=== PATIENT | female | born 1945 | race Caucasian/White ===

== ENCOUNTER 2016-09-18 22:24 | Inpatient (IN) | payer MEDICARE, OTHER ==
[2016-09-18 22:41] VITALS: BMI 24.5
[2016-09-18] MEDS ORDERED: Morphine 2 mg/ml ISec IVP STA (22:54)
[2016-09-18] MEDS: Sodium Chloride 0.9% 1,000 ML IV SCH (23:03)
--- NOTE | 2016-09-18 23:05 | ED PDOC ---
Arrival/HPI - General Chief Complaint: Abdominal Pain Time Seen by Provider: 09/18/16 22:33 Historian: Patient, Family - History of Present Illness Narrative History of Present Illness (Text): 09/18/16 22:37 70 year old female, whose past medical history includes hyperlipidema and CVA, who presents to the emergency department accompanied by family complaining of upper abdominal pain for the past 5 days. Family reports associated decreased appetite, 1 episode of vomiting, and constipation. The patient denies diarrhea, fever, chills, chest pain, shortness of breath, urinary symptoms, or any other complaints at this time. Time/Duration: < week (5 days ) Symptom Onset: Gradual Symptom Course: Unchanged Activities at Onset: Rest, Light Context: Home Past Medical History - Provider Review Nursing Documentation Reviewed: Yes - Reproductive Menopause: Yes - Neurological HX Cerebrovascular Accident: Yes (x2) - Psychiatric Hx Substance Use: No - Anesthesia Hx Anesthesia: No Family/Social History - Physician Review Nursing Documentation Reviewed: Yes Family/Social History: Unknown Family HX Smoking Status: Never Smoked Hx Alcohol Use: No Hx Substance Use: No Allergies/Home Meds Allergies/Adverse Reactions: Allergies No Known Allergies Allergy (Verified 09/18/16 22:41) Home Medications: Home Meds Medication Instructions Recorded Confirmed Unobtainable 09/18/16 09/18/16 Review of Systems - Physician Review All systems were reviewed & negative as marked: Yes - Review of Systems Constitutional: Normal. absent: Fevers Respiratory: Normal. absent: SOB Cardiovascular: Normal. absent: Chest Pain Gastrointestinal: Abdominal Pain, Constipation, Vomiting, Appetite Changes. absent: Diarrhea Genitourinary Female: Normal. absent: Dysuria, Frequency, Hematuria, Urine Output Changes Physical Exam Vital Signs Reviewed: Yes Vital Signs Temp Pulse Resp BP Pulse Ox 09/18/16 22:41 98.5 F 96 H 17 138/71 96 Temperature: Afebrile Blood Pressure: Normal Pulse: Regular Respiratory Rate: Normal Appearance: Positive for: Well-Appearing, Non-Toxic, Comfortable Pain Distress: None Mental Status: Positive for: Alert and Oriented X 3 - Systems Exam Head: Present: Atraumatic, Normocephalic Pupils: Present: PERRL Extroacular Muscles: Present: EOMI Conjunctiva: Present: Normal Mouth: Present: Moist Mucous Membranes Neck: Present: Normal Range of Motion Respiratory/Chest: Present: Clear to Auscultation, Good Air Exchange. No: Respiratory Distress, Accessory Muscle Use Cardiovascular: Present: Regular Rate and Rhythm, Normal S1, S2. No: Murmurs Abdomen: Present: Tenderness (Upper abdominal discomfort with palpation), Normal Bowel Sounds. No: Distention, Peritoneal Signs Back: Present: Normal Inspection Upper Extremity: Present: Normal Inspection. No: Cyanosis, Edema Lower Extremity: Present: Normal Inspection. No: Edema Neurological: Present: GCS=15, CN II-XII Intact, Speech Normal Skin: Present: Warm, Dry, Normal Color. No: Rashes Psychiatric: Present: Alert, Oriented x 3, Normal Insight, Normal Concentration Medical Decision Making ED Course and Treatment: 09/18/16 22:37 Impression: 70 year old female with abdominal pain. Differential Diagnosis included but are not limited to: biliary colic vs. cholecystits vs. gastritis Plan: -- Chest X-ray -- EKG -- Abdominal Ultrasound -- Labs, lipase -- IV fluids -- Morphine -- Pepcid -- Zofran -- Reassess and disposition Progress Notes: EKG: Ordered, reviewed, and independently interpreted the EKG. Rate : 89 BPM Rhythm : NSR Interpretation : Non-specific T wave changes. Comparison : No previous EKG for comparison. 09/19/16 00:01 Chest x-ray shows no acute processes. 09/19/16 00:21 US Abdomen Complete FINDINGS: Liver: Evaluation of the liver is limited by streak and body habitus. There is hepatopedal flow in the main portal vein. Gallbladder: Gallbladder is partially distended with shadowing stones in the gallbladder neck. There is minimal sludge. There is diffuse gallbladder wall thickening. Gallbladder wall measures 9.5 mm in width. Common bile duct: Common bile duct measures 6.6 mm in diameter. Pancreas :Pancreas is obscured by bowel gas. Kidneys: Left kidney is unremarkable, 10 cm in length. Right kidney is not optimally visualized. Spleen: Spleen is unremarkable. Aorta: Visualized portions of the aorta and inferior vena cava are unremarkable. Inferior vena cava: See above. IMPRESSION: Gallstones with gallbladder wall thickening; mildly prominent common duct; limited by body habitus and bowel gas. Patient was not tender over the gallbladder 09/19/16 00:30 Case discused with construction producer certified medical coder, who is aware and agrees with plan. House doctor paged. 09/19/16 00:[address] Sparrow, who is aware and agree with plan. Accepts to hospitalist service. Pt will be admitted to [facility] for cholecystitis and biliary colic. - Lab Interpretations Lab Results: 09/18/16 22:55 09/18/16 22:55 Lab Results 09/18/16 22:55: WBC 13.1 H, RBC 4.16, Hgb 12.9, Hct 38.1, MCV 91.6, MCH 31.0, MCHC 33.9, RDW 13.5, Plt Count 263, MPV 10.2 09/18/16 22:55: Sodium 135, Potassium 3.6, Chloride 99, Carbon Dioxide 29, Anion Gap 11, BUN 18, Creatinine 0.5, Est GFR ( Amer) > 60, Est GFR (Non- Af Amer) > 60, Random Glucose 124 H, Calcium 9.1, Total Bilirubin 1.8 H, AST 64 H, ALT 88 H, Alkaline Phosphatase 188 H, Total Protein 7.5, Albumin 3.6, Globulin 3.9, Albumin/Globulin Ratio 0.9 L, Lipase 93 I have reviewed the lab results: Yes - RAD Interpretation Radiology Orders: 09/18/16 22:53 CHEST PORTABLE [RAD] Stat ABDOMEN COMPLETE [US] Stat Clinical Informatics Physician: Radiologist - EKG Interpretation Interpreted by ED Physician: Yes Type: 12 lead EKG - Medication Orders Current Medication Orders: Sodium Chloride (Sodium Chloride 0.9%) 1,000 mls @ 100 mls/hr IV .Q10H [facility] Last Admin: 09/18/16 23:03 Dose: 100 mls/hr Ceftriaxone Sodium (Rocephin 1 Gram Ivpb) 1 gm in 100 mls @ 200 mls/hr IV ONCE STA PRN Reason: Protocol Stop: 09/19/16 00:54 Metronidazole (Flagyl) 500 mg in 100 mls @ 100 mls/hr IVPB STAT STA PRN Reason: Protocol Stop: 09/19/16 01:25 Discontinued Medications Famotidine (Pepcid) 20 mg IVP STAT STA Stop: 09/18/16 22:55 Last Admin: 09/18/16 23:03 Dose: 20 mg Morphine Sulfate (Morphine) 2 mg IVP STAT STA Stop: 09/18/16 22:55 Last Admin: 09/18/16 23:03 Dose: 2 mg Ondansetron HCl (Zofran Inj) 4 mg IVP ONCE ONE Stop: 09/18/16 22:55 Last Admin: 09/18/16 23:03 Dose: 4 mg - Scribe Statement The provider has reviewed the documentation as recorded by the Scribe Kathryn Amaro training under Alison Gleason. Provider Scribe Attestation: All medical record entries made by the Scribe were at my direction and personally dictated by me. I have reviewed the chart and agree that the record accurately reflects my personal performance of the history, physical exam, medical decision making, and the department course for this patient. I have also personally directed, reviewed, and agree with the discharge instructions and disposition. Disposition/Present on Arrival - Present on Arrival Any Indicators Present on Arrival: No History of DVT/PE: No History of Uncontrolled Diabetes: No Urinary Catheter: No History of Decub. Ulcer: No History Surgical Site Infection Following: None - Disposition Have Diagnosis and Disposition been Completed?: Yes Diagnosis: Biliary colic, Cholecystitis Disposition: HOSPITALIZED Disposition Time: 00:29 Patient Plan: Admission Patient Problems: Current Active Problems Problem Status Onset Biliary colic Acute Cholecystitis Acute Condition: STABLE
[2016-09-18 23:08] LABS: HEMOGLOBIN 12.9 gm/dL (12.0-16.0); MEAN CELL VOLUME 91.6 fL (80.0-105.0); MEAN CORPUSCULAR HGB CONC 33.9 g/dl (31.0-37.0); MEAN PLATELET VOLUME 10.2 fl (7.0-11.0); RBC 4.16 10^6/uL (3.5-6.1); RED CELL DISTRIBUTION WIDTH 13.5 % (11.5-14.5); WHITE BLOOD COUNT 13.1 10^3/ul (4.5-11.0)
[2016-09-18 23:14] LABS: ALB/GLOB RATIO 0.9 (1.1-1.8); ALBUMIN 3.6 g/dL (3.0-4.8); ALT/SGPT 88 U/L (7-56); AST/SGOT 64 U/L (15-39); BLOOD UREA NITROGEN 18 mg/dL (7-21); CALCIUM 9.1 mg/dL (8.4-10.5); GFR AFRICAN-AMERICAN > 60; GFR NON-AFRICAN AMERICAN > 60; LIPASE 93 U/L (23-300)
--- NOTE | 2016-09-19 00:16 | US ---
EXAM: US Abdomen Complete CLINICAL HISTORY: 70 years old, female; Pain; Abdominal pain; Epigastric; Additional info: Upper abdominal pain TECHNIQUE: Real-time ultrasound of the abdomen (complete) with image documentation. EXAM DATE/TIME: 09/18/2016 10:53 PM COMPARISON: There are no prior studies for comparison. FINDINGS: Liver: Evaluation of the liver is limited by streak and body habitus. There is hepatopedal flow in the main portal vein. Gallbladder: Gallbladder is partially distended with shadowing stones in the gallbladder neck. There is minimal sludge. There is diffuse gallbladder wall thickening. Gallbladder wall measures 9.5 mm in width. Common bile duct: Common bile duct measures 6.6 mm in diameter. Pancreas :Pancreas is obscured by bowel gas. Kidneys: Left kidney is unremarkable, 10 cm in length. Right kidney is not optimally visualized. Spleen: Spleen is unremarkable. Aorta: Visualized portions of the aorta and inferior vena cava are unremarkable. Inferior vena cava: See above. IMPRESSION: Gallstones with gallbladder wall thickening; mildly prominent common duct; limited by body habitus and bowel gas Patient was not tender over the gallbladder
[2016-09-19] MEDS ORDERED: cefTRIAXone 1 gm 1 GM/100 ML BAG IV STA (00:25)
[2016-09-19] MEDS ORDERED: metroNIDAZOLE IV 500 mg/100 ml 500 MG/100 ML BAG IVPB STA (00:26)
--- NOTE | 2016-09-19 01:02 | CP.PCM.HP ---
<Adrien Raza - Last Filed: 09/19/16 02:48> History of Present Illness - History of Present Illness History of Present Illness: cc: abdominal pain HPI: Patient is a 70yo female with past medical history of hyerplipidemia, CVA x2 (2003) that presents c/o abdominal pain. Patient states that the abdominal pain started on Friday, localized to the right upper quadrant and is associated with subjective fevers, nausea and 3 episodes of nonbilious, nonbloody vomiting. She reported that the pain is non-radiating and her appetite has been poor. She reports not eating since Friday and her last bowel movement was on Friday. She denies having similar pain in the past and states that prior to Friday she was in her normal state of health. Denies any alleviating or exacerbating factors. Denies chest pain, palpitations, SOB, chills, cough, focal weakness, numbness, tingling, dysuria, frequency, urgency. 12point ROS as per HPI above, otherwise negative PMHx: CVA x2 (2004), hyperlipidemia PSHx: denies Allergies: NKDA Medications: denies taking medications on a regular basis Family Hx: Non-contributory Social Hx: denies tobacco, alcohol and illicit drug use; lives with her daughter Present on Admission - Present on Admission Any Indicators Present on Admission: No Past Patient History - Past Social History Smoking Status: Never Smoked - NEUROLOGICAL HX Cerebrovascular Accident: Yes (x2) - PSYCHIATRIC Hx Substance Use: No - SURGICAL HISTORY Hx Surgeries: No - ANESTHESIA Hx Anesthesia: No Meds Allergies/Adverse Reactions: Allergies Allergy/AdvReac Type Severity Reaction Status Date / Time No Known Allergies Allergy Verified 09/18/16 22:41 Physical Exam - Constitutional Appears: Non-toxic, No Acute Distress - Head Exam Head Exam: ATRAUMATIC, NORMAL INSPECTION, NORMOCEPHALIC - Eye Exam Eye Exam: EOMI, PERRL - ENT Exam ENT Exam: Mucous Membranes Moist - Neck Exam Neck exam: Positive for: Normal Inspection - Respiratory Exam Respiratory Exam: Clear to Auscultation Bilateral. absent: Rales, Rhonchi, Wheezes - Cardiovascular Exam Cardiovascular Exam: RRR, +S1, +S2. absent: Systolic Murmur - GI/Abdominal Exam GI & Abdominal Exam: Soft, Tenderness (RUQ abdominal pain). absent: Distended, Firm, Guarding, Rebound - Extremities Exam Extremities exam: Positive for: normal inspection. Negative for: calf tenderness, pedal edema, tenderness - Neurological Exam Neurological exam: Alert, Oriented x3 - Psychiatric Exam Psychiatric exam: Normal Affect, Normal Mood - Skin Skin Exam: Dry, Intact, Normal Color, Warm Results - Vital Signs Recent Vital Signs: Last Vital Signs Temp 98.5 F 09/18/16 22:41 Pulse 85 09/19/16 00:30 Resp 18 09/19/16 00:30 BP 138/71 09/19/16 00:30 Pulse Ox 94 L 09/19/16 00:30 - Labs Result Diagrams: 09/18/16 22:55 09/18/16 22:55 Assessment & Plan - Assessment and Plan (Free Text) Plan: 70yo female with history of CVA x2, hyperlipidemia presents c/o RUQ abdominal pain associated with nausea/vomiting likely secondary to acute cholecystitis 1. Acute cholecystitis -Tbili, AST/ALT, ALKP elevated -afebrile, leukocytosis of 13.1 on admission -Abdominal US revealed gallstones with gallbladder wall thickening measuring 9.5mm in width, minimal sludge, CBD measures 6.6mm in diameter -Pending MRCP for evaluation of potential CBD stone -Continue with Cipro/Flagyl -IVF hydration, pain control, zofran PRN for nausea/vomiting -NPO -Cardiology consulted for pre-op clearance - Dr. Okeefe -Surgery consulted - Dr. Marquez 2. History of CVA -Continue ASA 81 3. GI/DVT prophylaxis -Protonix/Heparin Patient seen and case discussed with attending, Dr. Sparrow - Date & Time Date: 09/19/16 Time: 01:12 <Elba Sparrow - Last Filed: 09/19/16 04:01> Results - Vital Signs Recent Vital Signs: Last Vital Signs Temp 99 F 09/19/16 01:50 Pulse 82 09/19/16 01:50 Resp 16 09/19/16 01:50 BP 118/68 09/19/16 01:50 Pulse Ox 94 L 09/19/16 00:30 - Labs Result Diagrams: 09/18/16 22:55 09/18/16 22:55 Attending/Attestation - Attestation I have personally seen and examined this patient.: Yes I have fully participated in the care of the patient.: Yes I have reviewed all pertinent clinical information: Yes Notes (Text): 09/19/16 04:00 Patient was seen when she was in [facility]. Agree with history , physical examination, assessment and plan.
[2016-09-19] MEDS ORDERED: Morphine 2 mg/ml ISec IVP PRN (01:38)
--- NOTE | 2016-09-19 01:49 | CP.PCM.CON ---
<Malia Flowers - Last Filed: 09/19/16 01:41> History of Present Illness - History of Present Illness History of Present Illness: General Surgery consult for Dr. Marquez Consulted for: cholecystitis Patient is a 70 F with PMH of HLD and CVA with residual right sided weakness with no PSH who presents with abdominal pain, nausea, and vomiting 5 days in duration. Patient reports RUQ abdominal pain that began Friday associated with dark emesis, nausea, subjective fevers, and decreased appetite. Patient took laxatives and had a dark but non-melenic, non-hematochezic bowel movement on Friday, which did not resolve the symptoms. Patient states that the pain is constant and is not associated with meals but that she doesn't have an appetite for food and has just been drinking liquids for past 2 days. Patient denies chest pain, heart burn, SOB, dysuria, hematuria, back pain, shoulder pain, or any other symptoms. afebrile, VSS WBC: 13.1, Total BR: 1.8, AST: 64, ALT: 88, Alkaline phosphatase: 188 Abd US: cholelithiasis with gall bladder wall thickening, CBD 6.6mm PMH: CVA, HLD PSH: none All: NKDA Social: lives at home with family, denies tobacco, ETOH, or drugs Review of Systems - Review of Systems All systems: reviewed and no additional remarkable complaints except (as per HPI ) - Constitutional Constitutional: Anorexia, Chills, Fever, Malaise - Cardiovascular Cardiovascular: absent: Chest Pain, Chest Pain at Rest, Chest Pain with Activity - Respiratory Respiratory: absent: Cough, Dyspnea, Chest Congestion - Gastrointestinal Gastrointestinal: As Per HPI, Abdominal Pain, Constipation, Nausea, Vomiting. absent: Diarrhea, Hematochezia, Melena - Genitourinary Genitourinary: As Per HPI. absent: Difficulty Urinating, Dysuria, Hematuria - Reproductive: Female Reproductive:Female: Post Menopausal. absent: Abnormal Vaginal Bleeding - Menstruation Menstruation: Post Menopausal. absent: Abnormal Vaginal Bleeding - Musculoskeletal Musculoskeletal: absent: Back Pain Additional comments: weakness in right upper and lower extremity s/p CVA - Integumentary Integumentary: Lesions (chronic dry skin in the lower extremities) - Neurological Neurological: Focal Weakness (chronic R sided weakness s/p cva). absent: Numbness, Tingling Past Patient History - Past Medical History & Family History Past Medical History?: Yes - Past Social History Smoking Status: Never Smoked Alcohol: None Drugs: Denies Home Situation {Lives}: With Family - CARDIAC Hx Hypercholesterolemia: Yes Hx Hypertension: No - NEUROLOGICAL HX Cerebrovascular Accident: Yes (x2) - ENDOCRINE/METABOLIC Hx Diabetes Mellitus Type 1: No Hx Diabetes Mellitus Type 2: No - PSYCHIATRIC Hx Substance Use: No - SURGICAL HISTORY Hx Surgeries: No - ANESTHESIA Hx Anesthesia: No Meds Allergies/Adverse Reactions: Allergies Allergy/AdvReac Type Severity Reaction Status Date / Time No Known Allergies Allergy Verified 09/18/16 22:41 - Medications Medications: Current Medications Aspirin (Ecotrin) 81 mg PO DAILY [facility] Heparin Sodium (Porcine) (Heparin) 5,000 units SC Q12 [facility] PRN Reason: Protocol Sodium Chloride (Sodium Chloride 0.9%) 1,000 mls @ 100 mls/hr IV .Q10H [facility] Last Admin: 09/18/16 23:03 Dose: 100 mls/hr Morphine Sulfate (Morphine) 2 mg IVP Q6H PRN PRN Reason: Pain, moderate (4-7) Ondansetron HCl (Zofran Inj) 4 mg IVP Q4H PRN PRN Reason: Nausea/Vomiting Pantoprazole Sodium (Protonix Inj) 40 mg IVP DAILY [facility] Physical Exam - Constitutional Appears: Well, Non-toxic, No Acute Distress - Head Exam Head Exam: ATRAUMATIC, NORMOCEPHALIC - Eye Exam Eye Exam: Normal appearance. absent: Conjunctival injection, Scleral icterus - ENT Exam ENT Exam: Mucous Membranes Moist, Normal Oropharynx - Respiratory Exam Respiratory Exam: NORMAL BREATHING PATTERN. absent: Accessory Muscle Use, Respiratory Distress - Cardiovascular Exam Cardiovascular Exam: RRR - GI/Abdominal Exam GI & Abdominal Exam: Soft, Tenderness (to palpation, RUQ>RLQ). absent: Distended, Guarding Additional comments: positive ma's sign, negative rovsings - Extremities Exam Extremities exam: Positive for: pedal pulses present. Negative for: calf tenderness, pedal edema - Back Exam Back exam: absent: CVA tenderness (L), CVA tenderness (R), rash noted - Neurological Exam Neurological exam: Alert, Oriented x3 Additional comments: mouth droop on right side - Psychiatric Exam Psychiatric exam: Normal Affect, Normal Mood - Skin Skin Exam: Dry, Intact, Normal Color, Warm Results - Vital Signs Recent Vital Signs: Last Vital Signs Temp 98.5 F 09/18/16 22:41 Pulse 85 09/19/16 00:30 Resp 18 09/19/16 00:30 BP 138/71 09/19/16 00:30 Pulse Ox 94 L 09/19/16 00:30 - Labs Result Diagrams: 09/18/16 22:55 09/18/16 22:55 - Imaging and Cardiology US - abdomen Status: Image reviewed by me, Report reviewed by me Assessment & Plan - Assessment and Plan (Free Text) Assessment: 70F with CVA and HLD with acute cholecystitis and cholelithiasis afebrile, VSS tenderness in the RUQ, positive ma's mild leukocytosis, transaminitis with mildly elevated bilirubin and alkaline phosphatase Abdominal US: stones, small sludge, thickened gall bladder wall, possible pericholecystic fluid, no CBD dilation, lipase wnl Plan: -No need for emergent surgical intervention. Patient will need laparoscopic cholecystectomy -MRCP to rule out choledocholithiasis -trend CBC and CMP -NPO -IVF, antibiotics, analgesics, anti-emetics -Patient will need medical/cardiac clearance prior to surgery Thank you for this consult. Further recommendations per Dr. Marquez in the AM Malia Flowers, PGY1 <Don Marquez - Last Filed: 09/29/16 16:52> Results - Vital Signs Recent Vital Signs: Last Vital Signs Temp 98.1 F 09/25/16 06:00 Pulse 76 09/25/16 06:00 Resp 18 09/25/16 06:00 BP 132/82 09/25/16 06:00 Pulse Ox 94 L 09/25/16 06:00 - Labs Result Diagrams: 09/25/16 07:00 09/25/16 07:00 Attending/Attestation - Attestation I have personally seen and examined this patient.: Yes I have fully participated in the care of the patient.: Yes I have reviewed all pertinent clinical information: Yes Notes (Text): 09/29/16 16:50 Pt was seen and examined at bedside on 09/19/16 Agree with above note and assessment Pt with Acute Cholecystitis with normal MRCP 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
[2016-09-19] MEDS ORDERED: Sodium Chloride 0.9% 500 ML IV STA (02:23)
[2016-09-19 06:13] LABS: URINE BILIRUBIN SMALL (NEGATIVE); URINE BLOOD NEGATIVE (NEGATIVE); URINE GLUCOSE (UA) NEGATIVE (NEGATIVE); URINE LEUKOCYTE ESTERASE NEGATIVE Leu/uL (NEGATIVE); URINE NITRATE NEGATIVE (NEGATIVE); URINE PROTEIN 30 mg/dL (<30 mg/dL); URINE UROBILINOGEN >=8.0 E.U./dL (<1 E.U./dL)
[2016-09-19 06:14] LABS: URINE APPEARANCE SL CLOUDY (CLEAR); URINE COLOR DARK YELLOW (YELLOW)
[2016-09-19 06:31] LABS: URINE BACTERIA FEW (NEG); URINE RBC 0 - 2 /hpf (0-2); URINE WBC 0 - 2 /hpf (0-6)
[2016-09-19 07:52] LABS: MEAN CELL VOLUME 92.1 fL (80.0-105.0); MEAN CORPUSCULAR HEMOGLOBIN 30.5 pg (25.0-35.0); MEAN CORPUSCULAR HGB CONC 33.1 g/dl (31.0-37.0); MEAN PLATELET VOLUME 10.5 fl (7.0-11.0); RBC 3.93 10^6/uL (3.5-6.1); RED CELL DISTRIBUTION WIDTH 13.4 % (11.5-14.5); WHITE BLOOD COUNT 13.4 10^3/ul (4.5-11.0)
[2016-09-19 08:02] LABS: ALB/GLOB RATIO 0.9 (1.1-1.8); ALBUMIN 2.7 g/dL (3.0-4.8); ALT/SGPT 68 U/L (7-56); AST/SGOT 41 U/L (15-39); BLOOD UREA NITROGEN 16 mg/dL (7-21); CALCIUM 8.4 mg/dL (8.4-10.5); GFR AFRICAN-AMERICAN > 60; GFR NON-AFRICAN AMERICAN > 60
--- NOTE | 2016-09-19 09:38 | RAD ---
HISTORY: abdominal pain COMPARISON: No prior. FINDINGS: LUNGS: No active pulmonary disease. PLEURA: No significant pleural effusion identified, no pneumothorax apparent. CARDIOVASCULAR: Normal. OSSEOUS STRUCTURES: No significant abnormalities. VISUALIZED UPPER ABDOMEN: Normal. OTHER FINDINGS: There is all of a robert of the right hemidiaphragm IMPRESSION: No active disease.
[2016-09-19] MEDS ORDERED: Ciprofloxacin 400mg/200ml D5W 400 MG/200 ML BAG IVPB SCH (10:00)
--- NOTE | 2016-09-19 10:11 | CP.PCM.CON ---
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 Patient states that pain began all of a sudden and has been constant since then. Pain is not attributed to food. Patient also c/ o of subjective fevers and chills. She also c/o of 4 episodes of NBNB vomiting for the past few days. She also c/o of "dark black" stool yesterday x 3. Patient denies experiencing this pain before. In the ED, patient was found to have leukocytosis at 13.1, low grade fever of 99 and hyperbilirubinemia at 1.8. Abdominal US showed gallstones with gallbladder wall thickening measuring 9.5 mm and mild prominent common bile duct. Patient denies having any colonoscopy or EGD procedures in the past. 12 point ROS are negative except for the above mentioned. PMHx: stated above Sx: denies Allergies: NKDA Medications: denies taking medications on a regular basis Family Hx: Non-contributory Social Hx: denies tobacco, alcohol and illicit drug use; lives with her daughter Past Patient History - Past Medical History & Family History Past Medical History?: Yes - Past Social History Smoking Status: Never Smoked Chewing Tobacco Use: No Cigar Use: No Alcohol: None Drugs: Denies Home Situation {Lives}: With Family - CARDIAC Hx Hypercholesterolemia: Yes Hx Hypertension: No - NEUROLOGICAL HX Cerebrovascular Accident: Yes (x2) - ENDOCRINE/METABOLIC Hx Diabetes Mellitus Type 1: No Hx Diabetes Mellitus Type 2: No - MUSCULOSKELETAL/RHEUMATOLOGICAL Hx Falls: No - PSYCHIATRIC Hx Substance Use: No - SURGICAL HISTORY Hx Surgeries: No - ANESTHESIA Hx Anesthesia: No Meds Allergies/Adverse Reactions: Allergies Allergy/AdvReac Type Severity Reaction Status Date / Time No Known Allergies Allergy Verified 09/18/16 22:41 - Medications Medications: Current Medications Acetaminophen (Tylenol 325mg Tab) 650 mg PO Q4H PRN PRN Reason: Fever >100.4 F Aspirin (Ecotrin) 81 mg PO DAILY [facility] Heparin Sodium (Porcine) (Heparin) 5,000 units SC Q12 [place] PRN Reason: Protocol Sodium Chloride (Sodium Chloride 0.9%) 1,000 mls @ 100 mls/hr IV .Q10H [facility] Last Admin: 09/18/16 23:03 Dose: 100 mls/hr Piperacillin Sod/Tazobactam Sod (Zosyn 3.375 In Ns 100ml) 100 mls @ 200 mls/hr IVPB Q6 [place] PRN Reason: Protocol Stop: 09/19/16 18:29 Morphine Sulfate (Morphine) 2 mg IVP Q6H PRN PRN Reason: Pain, moderate (4-7) Ondansetron HCl (Zofran Inj) 4 mg IVP Q4H PRN PRN Reason: Nausea/Vomiting Pantoprazole Sodium (Protonix Inj) 40 mg IVP DAILY [facility] Physical Exam - Constitutional Appears: Non-toxic, No Acute Distress - Head Exam Head Exam: ATRAUMATIC - ENT Exam ENT Exam: Mucous Membranes Moist - Respiratory Exam Respiratory Exam: Clear to Auscultation Bilateral. absent: Accessory Muscle Use , Rales, Rhonchi, Wheezes, Respiratory Distress - Cardiovascular Exam Cardiovascular Exam: REGULAR RHYTHM, +S1, +S2. absent: Gallop, Rubs, Systolic Murmur - GI/Abdominal Exam GI & Abdominal Exam: Normal Bowel Sounds, Soft, Tenderness (RUQ). absent: Distended, Firm, Guarding, Organomegaly, Rebound, Rigid - Rectal Exam Rectal Exam: Hemorrhoids. absent: Black Stool, Bloody Stool, Fecal Impaction - Extremities Exam Extremities exam: Negative for: pedal edema, tenderness - Neurological Exam Neurological exam: Alert, Oriented x3 - Psychiatric Exam Psychiatric exam: Normal Affect, Normal Mood - Skin Skin Exam: Dry, Intact, Normal Color, Warm Results - Vital Signs Recent Vital Signs: Last Vital Signs Temp 100.1 F H 09/19/16 08:18 Pulse 87 09/19/16 08:18 Resp 18 09/19/16 08:18 BP 121/67 09/19/16 08:18 Pulse Ox 93 L 09/19/16 08:18 - Labs Result Diagrams: 09/19/16 07:30 09/19/16 07:30 Labs: Laboratory Results - last 24 hr 09/19/16 09/19/16 09/19/16 05:32 07:00 07:30 WBC 13.4 H RBC 3.93 Hgb 12.0 Hct 36.2 MCV 92.1 MCH 30.5 MCHC 33.1 RDW 13.4 Plt Count 266 MPV 10.5 Sodium Potassium Chloride Carbon Dioxide Anion Gap BUN Creatinine Est GFR ( Amer) Est GFR (Non-Af Amer) Random Glucose Calcium Total Bilirubin AST ALT Alkaline Phosphatase Total Protein Albumin Globulin Albumin/Globulin Ratio Urine Color Dark yellow Urine Appearance Sl cloudy Urine pH 6.0 Ur Specific [place] 1.025 Urine Protein 30 H Urine Glucose (UA) Negative Urine Ketones 40 H Urine Blood Negative Urine Nitrate Negative Urine Bilirubin Small H Urine Urobilinogen >=8.0 Ur Leukocyte Esterase Negative Urine RBC 0 - 2 Urine WBC 0 - 2 Ur Epithelial Cells 3 - 4 Urine Bacteria Few Blood Type O POSITIVE Blood Type Confirm Antibody Screen Negative BBK History Checked No verified bt 09/19/16 09/19/16 07:30 07:30 WBC RBC Hgb Hct MCV MCH MCHC RDW Plt Count MPV Sodium 138 Potassium 3.5 L Chloride 104 Carbon Dioxide 23 Anion Gap 15 BUN 16 Creatinine 0.5 Est GFR ( Amer) > 60 Est GFR (Non-Af Amer) > 60 Random Glucose 87 Calcium 8.4 Total Bilirubin 1.3 AST 41 H ALT 68 H Alkaline Phosphatase 167 H Total Protein 5.9 Albumin 2.7 L Globulin 3.1 Albumin/Globulin Ratio 0.9 L Urine Color Urine Appearance Urine pH Ur Specific [place] Urine Protein Urine Glucose (UA) Urine Ketones Urine Blood Urine Nitrate Urine Bilirubin Urine Urobilinogen Ur Leukocyte Esterase Urine RBC Urine WBC Ur Epithelial Cells Urine Bacteria Blood Type Blood Type Confirm O POSITIVE Antibody Screen BBK History Checked Assessment & Plan - Assessment and Plan (Free Text) Assessment: 70 year old female with past medical history of HLD and CVA x 2 in 2003 with residual right sided weakness is being seen for cholecystitis. On admission to hospital patient was found to have SIRS with WBC count of 13.1 and heart rate of 96. This morning she also developed a low grade temp of 100.1 and WBC count increased slightly at 13.4. On blood work, patient is found to have elevated LFTs: AST 41 ALT 68 and ALK 167. T bili is 1.3. Abdominal US on admission showed gallstones with gallbladder wall thickening of 9.5 mm and mildly prominent common duct, measuring 6.6 mm. Cholecystitis - Patient received rocephin and flagyl in ED. Patient will be started on Zosyn - Choledocholithiasis likely not present but will evaluate with MRCP - Patient will need cholecystectomy. Surgery is consulted - Will decide if ERCP is indicated - will continue to monitor for cholangitis - NPO Case discussed with attending, Dr. Fermin - Date & Time Date: 09/19/16 Time: 10:12 <Rashad Fermin - Last Filed: 09/19/16 16:48> Meds - Medications Medications: Current Medications Acetaminophen (Tylenol 325mg Tab) 650 mg PO Q4H PRN PRN Reason: Fever >100.4 F Aspirin (Ecotrin) 81 mg PO DAILY [facility] Last Admin: 09/19/16 10:52 Dose: 81 mg Heparin Sodium (Porcine) (Heparin) 5,000 units SC Q12 [facility] PRN Reason: Protocol Sodium Chloride (Sodium Chloride 0.9%) 1,000 mls @ 100 mls/hr IV .Q10H [facility] Last Admin: 09/19/16 12:03 Dose: 100 mls/hr Piperacillin Sod/Tazobactam Sod (Zosyn 3.375 In Ns 100ml) 100 mls @ 200 mls/hr IVPB Q6 [facility] PRN Reason: Protocol Stop: 09/19/16 18:29 Last Admin: 09/19/16 12:29 Dose: 200 mls/hr Potassium Chloride (Potassium Chloride 20 Meq/100 Ml) 20 meq in 100 mls @ 50 mls/hr IVPB ONCE ONE Stop: 09/19/16 17:05 Morphine Sulfate (Morphine) 2 mg IVP Q6H PRN PRN Reason: Pain, moderate (4-7) Ondansetron HCl (Zofran Inj) 4 mg IVP Q4H PRN PRN Reason: Nausea/Vomiting Pantoprazole Sodium (Protonix Inj) 40 mg IVP DAILY [facility] Last Admin: 09/19/16 10:52 Dose: 40 mg Results - Vital Signs Recent Vital Signs: Last Vital Signs Temp 99.4 F 09/19/16 11:24 Pulse 87 09/19/16 08:18 Resp 18 09/19/16 08:18 BP 121/67 09/19/16 08:18 Pulse Ox 93 L 09/19/16 08:18 - Labs Result Diagrams: 09/19/16 07:30 09/19/16 07:30 Labs: Laboratory Results - last 24 hr 09/19/16 09/19/1609/19/17 05:32 07:00 07:30 WBC 13.4 H RBC 3.93 Hgb 12.0 Hct 36.2 MCV 92.1 MCH 30.5 MCHC 33.1 RDW 13.4 Plt Count 266 MPV 10.5 PT INR Sodium Potassium Chloride Carbon Dioxide Anion Gap BUN Creatinine Est GFR ( Amer) Est GFR (Non-Af Amer) Random Glucose Calcium Total Bilirubin AST ALT Alkaline Phosphatase Total Protein Albumin Globulin Albumin/Globulin Ratio Urine Color Dark yellow Urine Appearance Sl cloudy Urine pH 6.0 Ur Specific [place] 1.025 Urine Protein 30 H Urine Glucose (UA) Negative Urine Ketones 40 H Urine Blood Negative Urine Nitrate Negative Urine Bilirubin Small H Urine Urobilinogen >=8.0 Ur Leukocyte Esterase Negative Urine RBC 0 - 2 Urine WBC 0 - 2 Ur Epithelial Cells 3 - 4 Urine Bacteria Few Blood Type O POSITIVE Blood Type Confirm Antibody Screen Negative BBK History Checked No verified bt 09/19/16 09/19/16 09/19/16 07:30 07:30 16:04 WBC RBC Hgb Hct MCV MCH MCHC RDW Plt Count MPV PT 11.4 INR 1.06 Sodium 138 Potassium 3.5 L Chloride 104 Carbon Dioxide 23 Anion Gap 15 BUN 16 Creatinine 0.5 Est GFR ( Amer) > 60 Est GFR (Non-Af Amer) > 60 Random Glucose 87 Calcium 8.4 Total Bilirubin 1.3 AST 41 H ALT 68 H Alkaline Phosphatase 167 H Total Protein 5.9 Albumin 2.7 L Globulin 3.1 Albumin/Globulin Ratio 0.9 L Urine Color Urine Appearance Urine pH Ur Specific [place] Urine Protein Urine Glucose (UA) Urine Ketones Urine Blood Urine Nitrate Urine Bilirubin Urine Urobilinogen Ur Leukocyte Esterase Urine RBC Urine WBC Ur Epithelial Cells Urine Bacteria Blood Type Blood Type Confirm O POSITIVE Antibody Screen BBK History Checked Attending/Attestation - Attestation I have personally seen and examined this patient.: Yes I have fully participated in the care of the patient.: Yes I have reviewed all pertinent clinical information: Yes Notes (Text): 09/19/16 16:45 70 year old female with h/o HLD, CVA admitted with RUQ pain and elevated LFTs, found to have acute cholecystitis. 1. Acute cholecystitis 2. Elevated LFTs Plan: -overall clinical picture is consistent with acute cholecystitis, with RUQ pain , murphys sign, characteristic findings on US/MRCP, and positive HIDA scan -recommend zosyn IV -recommend supportive care with pain control / anti-emetics / hydration -recommend surgical evaluation for cholecystectomy -MRCP reviewed, no evidence of choledocholithiasis -recommend checking viral hepatitis serologies -monitor daily lfts -repeat lfts in 2 weeks to make sure they continue to downtrend -will sign off at this time
--- NOTE | 2016-09-19 10:33 | CP.PCM.CON ---
History of Present Illness - History of Present Illness History of Present Illness: Abdominal pain, nausea and vomiting no known prior cardiac history No chest pain or SOB Being considered for cholecystectomy Review of Systems - Gastrointestinal Gastrointestinal: Abdominal Pain, Vomiting Past Patient History - Past Medical History & Family History Past Medical History?: Yes - Past Social History Smoking Status: Never Smoked Chewing Tobacco Use: No Cigar Use: No Alcohol: None Drugs: Denies Home Situation {Lives}: With Family - CARDIAC Hx Hypercholesterolemia: Yes Hx Hypertension: No - NEUROLOGICAL HX Cerebrovascular Accident: Yes (x2) - ENDOCRINE/METABOLIC Hx Diabetes Mellitus Type 1: No Hx Diabetes Mellitus Type 2: No - MUSCULOSKELETAL/RHEUMATOLOGICAL Hx Falls: No - PSYCHIATRIC Hx Substance Use: No - SURGICAL HISTORY Hx Surgeries: No - ANESTHESIA Hx Anesthesia: No Meds Allergies/Adverse Reactions: Allergies Allergy/AdvReac Type Severity Reaction Status Date / Time No Known Allergies Allergy Verified 09/18/16 22:41 - Medications Medications: Current Medications Acetaminophen (Tylenol 325mg Tab) 650 mg PO Q4H PRN PRN Reason: Fever >100.4 F Aspirin (Ecotrin) 81 mg PO DAILY ON [facility] Heparin Sodium (Porcine) (Heparin) 5,000 units SC Q12 ON [facility] PRN Reason: Protocol Sodium Chloride (Sodium Chloride 0.9%) 1,000 mls @ 100 mls/hr IV .Q10H ON [facility] OF [facility] Last Admin: 09/18/16 23:03 Dose: 100 mls/hr Piperacillin Sod/Tazobactam Sod (Zosyn 3.375 In Ns 100ml) 100 mls @ 200 mls/hr IVPB Q6 [facility] PRN Reason: Protocol Stop: 09/19/16 18:29 Morphine Sulfate (Morphine) 2 mg IVP Q6H PRN PRN Reason: Pain, moderate (4-7) Ondansetron HCl (Zofran Inj) 4 mg IVP Q4H PRN PRN Reason: Nausea/Vomiting Pantoprazole Sodium (Protonix Inj) 40 mg IVP DAILY ON [facility] Physical Exam - Constitutional Appears: Well - Head Exam Head Exam: ATRAUMATIC, NORMAL INSPECTION, NORMOCEPHALIC - Eye Exam Eye Exam: Normal appearance - Neck Exam Neck exam: Positive for: Normal Inspection - Respiratory Exam Respiratory Exam: Clear to Auscultation Bilateral, NORMAL BREATHING PATTERN - Cardiovascular Exam Cardiovascular Exam: REGULAR RHYTHM - GI/Abdominal Exam GI & Abdominal Exam: Tenderness - Extremities Exam Extremities exam: Positive for: normal inspection Results - Vital Signs Recent Vital Signs: Last Vital Signs Temp 100.1 F H 09/19/16 08:18 Pulse 87 09/19/16 08:18 Resp 18 09/19/16 08:18 BP 121/67 09/19/16 08:18 Pulse Ox 93 L 09/19/16 08:18 - Labs Result Diagrams: 09/19/16 07:30 09/19/16 07:30 Labs: Laboratory Results - last 24 hr 09/19/16 09/19/16 09/19/16 05:32 07:00 07:30 WBC 13.4 H RBC 3.93 Hgb 12.0 Hct 36.2 MCV 92.1 MCH 30.5 MCHC 33.1 RDW 13.4 Plt Count 266 MPV 10.5 Sodium Potassium Chloride Carbon Dioxide Anion Gap BUN Creatinine Est GFR ( Amer) Est GFR (Non-Af Amer) Random Glucose Calcium Total Bilirubin AST ALT Alkaline Phosphatase Total Protein Albumin Globulin Albumin/Globulin Ratio Urine Color Dark yellow Urine Appearance Sl cloudy Urine pH 6.0 Ur Specific [place] 1.025 Urine Protein 30 H Urine Glucose (UA) Negative Urine Ketones 40 H Urine Blood Negative Urine Nitrate Negative Urine Bilirubin Small H Urine Urobilinogen >=8.0 Ur Leukocyte Esterase Negative Urine RBC 0 - 2 Urine WBC 0 - 2 Ur Epithelial Cells 3 - 4 Urine Bacteria Few Blood Type O POSITIVE Blood Type Confirm Antibody Screen Negative BBK History Checked No verified bt 09/19/16 09/19/16 07:30 07:30 WBC RBC Hgb Hct MCV MCH MCHC RDW Plt Count MPV Sodium 138 Potassium 3.5 L Chloride 104 Carbon Dioxide 23 Anion Gap 15 BUN 16 Creatinine 0.5 Est GFR ( Amer) > 60 Est GFR (Non-Af Amer) > 60 Random Glucose 87 Calcium 8.4 Total Bilirubin 1.3 AST 41 H ALT 68 H Alkaline Phosphatase 167 H Total Protein 5.9 Albumin 2.7 L Globulin 3.1 Albumin/Globulin Ratio 0.9 L Urine Color Urine Appearance Urine pH Ur Specific [place] Urine Protein Urine Glucose (UA) Urine Ketones Urine Blood Urine Nitrate Urine Bilirubin Urine Urobilinogen Ur Leukocyte Esterase Urine RBC Urine WBC Ur Epithelial Cells Urine Bacteria Blood Type Blood Type Confirm O POSITIVE Antibody Screen BBK History Checked - EKG Data EKG comments: NSR, nonspecific T wave changes Assessment & Plan - Assessment and Plan (Free Text) Assessment: Cholithaiasis and cholecystitis Pulmonary HTN HypoK+ Plan: Con. IV Zosyn and IV Flagyl Supplement KCL I will review Echo f/u HIDA SCAN
[2016-09-19] MEDS ORDERED: metroNIDAZOLE IV 500 mg/100 ml 500 MG/100 ML BAG IVPB SCH (11:00)
[2016-09-19] MEDS ORDERED: Piperacillin/Tazobact 3.375 gm 100 ML IVPB SCH (12:00)
[2016-09-19] MEDS: Sodium Chloride 0.9% 1,000 ML IV SCH (12:03)
--- NOTE | 2016-09-19 12:06 | CARD ---
APPROVED REPORT EKG Measurement Heart [id number] <Conclusion> Normal sinus rhythm Nonspecific T wave abnormality Abnormal ECG
[2016-09-19] MEDS: Piperacillin/Tazobact 3.375 gm 100 ML IVPB SCH ×2 (12:29→17:13)
--- NOTE | 2016-09-19 12:41 | NM ---
PROCEDURE: Nuclear Medicine Hepatobiliary Scan HISTORY: cholecystitis, wbc 13, cholelithiasis COMPARISON: September 18, 2016. Abdominal ultrasound. Summary of findings on the comparison examination: Gallstones with gallbladder wall thickening. TECHNIQUE: 5.0 mCi of technetium 99m Mebrofenin was administered intravenously. Planar images of the abdomen were obtained at 5 min intervals to 60 mins. Delayed images were also obtained. FINDINGS: LIVER: Timely and homogenous uptake. COMMON BILE DUCT: identified at 30 mins. GALLBLADDER: NOT identified at 240 mins. SMALL BOWEL: Identified at 30 mins. IMPRESSION: ABNORMAL Hepatobiliary Scan. The cystic duct is occluded consistent with findings on ultrasound and acute cholecystitis. .
--- NOTE | 2016-09-19 13:05 | MRI ---
PROCEDURE: Magnetic Resonance Cholangiopancreatography HISTORY: COMPARISON: Biliary scan dated 09/19/2016. TECHNIQUE: Multiplanar, multisequence MR images of the abdomen were obtained, including heavily T2 weighted MRCP images of the biliary system. Rotating maximum intensity projection images of the biliary system were generated. FINDINGS: MRCP: The common bile duct is of a normal caliber. No evidence of choledocholithiasis. No intrahepatic biliary ductal dilatation. LIVER: Unremarkable. GALLBLADDER: Diffusely thickened gallbladder wall with pericholecystic fluid and a roughly 15 millimeter gallstone.. SPLEEN: Unremarkable. PANCREAS: Unremarkable. ADRENALS: Unremarkable. KIDNEYS: Unremarkable. AORTA: No aneurysm. ASCITES: None. OTHER FINDINGS: Large hiatal hernia.. minimal right pleural effusion. IMPRESSION: No evidence of choledocholithiasis. Findings consistent with acute cholecystitis.
--- NOTE | 2016-09-19 15:04 | CARD ---
APPROVED REPORT EXAM: Two-dimensional and M-mode echocardiogram with Doppler and color Doppler. INDICATION Pre-Op 2D DIMENSIONS Left Atrium (2D)3.0 (1.6-4.0cm)IVSd0.9 (0.7-1.1cm) LVDd3.2 (3.9-5.9cm)PWd1.0 (0.7-1.1cm) LVDs2.0 (2.5-4.0cm)FS (%) 36.4 % LVEF (%)67.6 (>50%) M-Mode DIMENSIONS Aortic Root2.80 (2.2-3.7cm)Aortic Cusp Exc.1.70 (1.5-2.0cm) Aortic Valve AoV Peak Cmdvyfoy813.0cm/Emily Peak GR.10mmHg Mitral Valve MV E Kllexhaa05.0cm/sMV A Cvqxsucp241.0cm/sE/A ratio0.8 TDI E/Lateral E'0.0E/Medial E'0.0 Tricuspid Valve TR Peak [id number]/sRAP [id number] Peak Gr.38mmHg [id number] LEFT VENTRICLE The left ventricle is normal size. There is normal left ventricular wall thickness. The left ventricular function is normal. The left ventricular ejection fraction is within the normal range. There is normal LV segmental wall motion. Transmitral Doppler flow pattern is Grade I-abnormal relaxation pattern. RIGHT VENTRICLE The right ventricle is normal size. There is normal right ventricular wall thickness. The right ventricular systolic function is normal. ATRIA The left atrium size is normal. The right atrium size is normal. AORTIC VALVE The aortic valve is mildly thickened. No aortic regurgitation is present. There is no aortic valvular stenosis. MITRAL VALVE The mitral valve is mildly thickened. TRICUSPID VALVE There is mild to moderate tricuspid regurgitation. There is mild to moderate pulmonary hypertension. GREAT VESSELS The aortic root is normal in size. The IVC is normal in size and collapses >50% with inspiration. PERICARDIAL EFFUSION There is no pericardial effusion. <Conclusion> The left ventricle is normal size. There is normal left ventricular wall thickness. The left ventricular function is normal. The left ventricular ejection fraction is within the normal range. There is normal LV segmental wall motion. Transmitral Doppler flow pattern is Grade I-abnormal relaxation pattern. There is mild to moderate tricuspid regurgitation. There is mild to moderate pulmonary hypertension.
[2016-09-19 16:16] LABS: INR 1.06 (0.93-1.08); PROTHROMBIN TIME 11.4 Seconds (9.9-11.8)
[2016-09-20] MEDS: Sodium Chloride 0.9% 1,000 ML IV SCH (01:00)
[2016-09-20] MEDS ORDERED: Lidocaine 1%/Epinephrine 1:100000 30 ml vial ONE (07:27)
[2016-09-20] MEDS ORDERED: Bupivacaine 0.5% Inj(30mL) ONE (07:28)
[2016-09-20] MEDS ORDERED: Propofol 10 mg/ml Inj (20 ML) ONE (07:42)
[2016-09-20] MEDS ORDERED: Rocuronium 10 mg/ml (5 ml) ONE ×2 (07:43→09:39)
[2016-09-20] MEDS ORDERED: Phenylephrine 10 mg/ml Inj ONE (07:49)
[2016-09-20] MEDS ORDERED: Desflurane Inhalation Anesthetic Liq (240 ml) ONE (08:28)
[2016-09-20] MEDS ORDERED: Morphine 4 mg/ml ISec ONE (09:04)
[2016-09-20] MEDS ORDERED: Labetalol 5 mg/ml Inj 20ML ONE (09:20)
[2016-09-20] MEDS ORDERED: Neostigmine Methylsulfate 3mg/3ml Syringe IV ONE (10:56)
[2016-09-20] MEDS ORDERED: Glycopyrrolate 0.2 mg/ml (2ml vial) ONE (10:56)
--- NOTE | 2016-09-20 11:57 | PCM.SURG1 ---
Surgeon's Initial Post Op Note - Surgeon's Notes Surgeon: Dr. Marquez [place] Contractor: Dr. Monahan Type of Anesthesia: General Endo, Local Pre-Operative Diagnosis: acute cholecystitis Operative Findings: see op report Post-Operative Diagnosis: same Operation Performed: laparoscopic converted to open partial cholecystectomy w/ extensive lysis of adhesions Specimen/Specimens Removed: gallbladder Estimated Blood Loss: EBL {In ML}: 500 Blood Products Given: N/A Drains Used: [place] Post-Op Condition: Good Date of Surgery/Procedure: 09/20/16 Time of Surgery/Procedure: 11:57
[2016-09-20] MEDS ORDERED: HYDROmorphone 0.5 mg/0.5 ml ISec IVP PRN (12:30)
[2016-09-20] MEDS: ceFAZolin 1 gm in NS 1 GM/100 ML BAG IVPB SCH ×2 (12:30→17:10)
[2016-09-20] MEDS ORDERED: Lactated Ringer's 1,000 ML IV SCH (12:31)
[2016-09-20 13:00] LABS: BASO # 0.02 K/mm3 (0.0-2.0); BASO % 0.1 % (0.0-3.0); EOS % 0.1 % (1.5-5.0); GRAN # 12.91 (1.4-6.5); GRAN % 90.1 % (50.0-68.0); HEMOGLOBIN 11.4 gm/dL (12.0-16.0); LYMPH # 0.9 (1.2-3.4); LYMPH % 6.1 % (22.0-35.0); MEAN CORPUSCULAR HEMOGLOBIN 30.8 pg (25.0-35.0); MEAN CORPUSCULAR HGB CONC 33.1 g/dl (31.0-37.0); MEAN PLATELET VOLUME 10.6 fl (7.0-11.0); MONO # 0.5 (0.1-0.6); MONO % 3.6 % (1.0-6.0); PLATELET COUNT 250 10^3/uL (120.0-450.0); RED CELL DISTRIBUTION WIDTH 13.1 % (11.5-14.5); WHITE BLOOD COUNT 14.3 10^3/ul (4.5-11.0)
--- NOTE | 2016-09-20 13:06 | CP.PCM.PN ---
<Bao Vaca - Last Filed: 09/20/16 12:50> Subjective - Date & Time of Evaluation Date of Evaluation: 09/20/16 Time of Evaluation: 12:30 - Subjective Subjective: Medicine progress note: Pt seen and examined at bedside. No acute events overnight. Pt went for lap marquise converted to open today, drain placed. Denies any rodriguez, dizziness, f/c, sob , cp, abd pain, n/v/d. Objective - Vital Signs/Intake and Output Vital Signs (last 24 hours): Temp Pulse Resp BP Pulse Ox 97.4 F L 69 12 164/73 H 99 09/20/16 12:22 09/20/16 12:22 09/20/16 12:22 09/20/16 12:22 09/20/16 12:22 Intake and Output: 09/20/16 09/20/16 06:59 18:59 Intake Total 480 Output Total 2000 Balance -1520 - Medications Medications: Current Medications Acetaminophen (Tylenol 325mg Tab) 650 mg PO Q6H [facility] Aspirin (Ecotrin) 81 mg PO DAILY [facility] Last Admin: 09/19/16 10:52 Dose: 81 mg Heparin Sodium (Porcine) (Heparin) 5,000 units SC Q12 [facility] PRN Reason: Protocol Hydromorphone HCl (Dilaudid) 0.5 mg IVP Q3 PRN PRN Reason: Pain, moderate (4-7) Hydromorphone HCl (Dilaudid) 1 mg IVP Q6H PRN PRN Reason: Pain, severe (8-10) Hydromorphone HCl (Dilaudid) 0.5 mg IVP Q15M PRN PRN Reason: Pain, moderate (4-7) Stop: 09/20/16 14:30 Metronidazole (Flagyl) 500 mg in 100 mls @ 100 mls/hr IVPB Q8 [facility] PRN Reason: Protocol Cefazolin Sodium (Ancef 1gm In Ns) 1 gm in 100 mls @ 200 mls/hr IVPB Q6H [facility] Stop: 09/21/16 06:44 Lactated Ringer's (Lactated Ringer's) 1,000 mls @ 100 mls/hr IV .Q10H [facility] Lactated Ringer's (Lactated Ringer's) 1,000 mls @ 75 mls/hr IV .[id number] [facility] Stop: 09/20/16 14:32 Ondansetron HCl (Zofran Inj) 4 mg IVP Q4H PRN PRN Reason: Nausea/Vomiting Pantoprazole Sodium (Protonix Inj) 40 mg IVP DAILY [facility] Last Admin: 09/19/16 10:52 Dose: 40 mg - Labs Labs: 09/19/16 07:30 09/19/16 07:30 PT 11.4 Seconds (9.9-11.8) 09/19/16 16:04 INR 1.06 (0.93-1.08) 09/19/16 16:04 - Constitutional Appears: No Acute Distress - Head Exam Head Exam: ATRAUMATIC, NORMAL INSPECTION, NORMOCEPHALIC - Eye Exam Eye Exam: EOMI, Normal appearance, PERRL Pupil Exam: NORMAL ACCOMODATION, PERRL - ENT Exam ENT Exam: Mucous Membranes Moist, Normal Exam - Neck Exam Neck Exam: Full ROM, Normal Inspection. absent: Lymphadenopathy - Respiratory Exam Respiratory Exam: Clear to Ausculation Bilateral, NORMAL BREATHING PATTERN. absent: Wheezes - Cardiovascular Exam Cardiovascular Exam: REGULAR RHYTHM, RRR, +S1, +S2. absent: Murmur - GI/Abdominal Exam GI & Abdominal Exam: Soft, Tenderness (CDI, minor tenderness near incision, drain in place ), Normal Bowel Sounds - Extremities Exam Extremities Exam: Full ROM, Normal Capillary Refill, Normal Inspection. absent : Joint Swelling, Pedal Edema - Back Exam Back Exam: NORMAL INSPECTION - Neurological Exam Neurological Exam: Alert, Awake, CN II-XII Intact, Normal Gait, Oriented x3 - Psychiatric Exam Psychiatric exam: Normal Affect, Normal Mood - Skin Skin Exam: Dry, Intact, Normal Color, Warm Assessment and Plan - Assessment and Plan (Free Text) Assessment: 70yo female with history of CVA x2, hyperlipidemia presents c/o RUQ abdominal pain found to have acute Cholecystitis s/p Lap marquise convereted to open, drain placed, POD 0. 1. Acute cholecystitis s/p lap marquise converted to open - Ancef and flagyl - Drain and dressing management as per surgery - pain control - HIDA scan shows occluded cystic duct consistent with acute marquise - MRCP - no evidence of choledocholithiasis -Abdominal US revealed gallstones with gallbladder wall thickening measuring 9.5mm in width, minimal sludge, CBD measures 6.6mm in diameter -zofran PRN for nausea/vomiting -Cardiology consulted - Dr. Okeefe -Surgery consulted - Dr. Marquez - surgery today 2. History of CVA - Continue ASA 81 - Echo shows normal EF, mild to mod TR, and plum HTN 3. GI/DVT prophylaxis -Protonix/Heparin Case and plan was seen, reviewed and discussed in detail with Dr Bennett. <Sabrina UREÑA,[place] - Last Filed: 09/20/16 17:27> Objective - Vital Signs/Intake and Output Vital Signs (last 24 hours): Temp Pulse Resp BP Pulse Ox 98.6 F 68 18 163/86 H 99 09/20/16 16:00 09/20/16 16:00 09/20/16 16:00 09/20/16 16:00 09/20/16 16:00 Intake and Output: 09/20/16 09/20/16 06:59 18:59 Intake Total 480 75 Output Total 2000 Balance -1520 75 - Medications Medications: Current Medications Acetaminophen (Tylenol 325mg Tab) 650 mg PO Q6H [facility] Aspirin (Ecotrin) 81 mg PO DAILY [facility] Last Admin: 09/19/16 10:52 Dose: 81 mg Heparin Sodium (Porcine) (Heparin) 5,000 units SC Q12 [facility] PRN Reason: Protocol Hydromorphone HCl (Dilaudid) 0.5 mg IVP Q3 PRN PRN Reason: Pain, moderate (4-7) Hydromorphone HCl (Dilaudid) 1 mg IVP Q6H PRN PRN Reason: Pain, severe (8-10) Last Admin: 09/20/16 17:13 Dose: 1 mg Metronidazole (Flagyl) 500 mg in 100 mls @ 100 mls/hr IVPB Q8 [facility] PRN Reason: Protocol Last Admin: 09/20/16 15:17 Dose: 100 mls/hr Cefazolin Sodium (Ancef 1gm In Ns) 1 gm in 100 mls @ 200 mls/hr IVPB Q6H [facility] Stop: 09/21/16 06:44 Last Admin: 09/20/16 17:10 Dose: 200 mls/hr Lactated Ringer's (Lactated Ringer's) 1,000 mls @ 100 mls/hr IV .Q10H [facility] Ondansetron HCl (Zofran Inj) 4 mg IVP Q4H PRN PRN Reason: Nausea/Vomiting Pantoprazole Sodium (Protonix Inj) 40 mg IVP DAILY [facility] Last Admin: 09/20/16 15:15 Dose: Not Given - Labs Labs: 09/20/16 12:50 09/20/16 12:50 PT 11.8 Seconds (9.9-11.8) 09/20/16 12:50 INR 1.09 (0.93-1.08) H 09/20/16 12:50 APTT 27.1 Seconds (23.7-30.8) 09/20/16 12:50 Attending/Attestation - Attestation I have personally seen and examined this patient.: Yes I have fully participated in the care of the patient.: Yes I have reviewed all pertinent clinical information, including history, physical exam and plan: Yes Notes (Text): 09/20/16 17:20 Patient was seen and examined with medical staff specialist . 70 yrs old female with gall stone cholycystitis, underwent laproscopic cholycystectomy today, on IV antibiotics, we will monitor. Management plan was discussed in detail with patient Education was provided.
[2016-09-20 13:07] LABS: ALBUMIN 2.9 g/dL (3.0-4.8); ALT/SGPT 75 U/L (7-56); AST/SGOT 106 U/L (15-39); BLOOD UREA NITROGEN 12 mg/dL (7-21); GFR AFRICAN-AMERICAN > 60; GFR NON-AFRICAN AMERICAN > 60
[2016-09-20 13:10] LABS: INR 1.09 (0.93-1.08); PARTIAL THROMBOPLASTIN TIME 27.1 Seconds (23.7-30.8); PROTHROMBIN TIME 11.8 Seconds (9.9-11.8)
[2016-09-20] MEDS: metroNIDAZOLE IV 500 mg/100 ml 500 MG/100 ML BAG IVPB SCH ×2 (15:17→22:04)
--- NOTE | 2016-09-20 15:49 | CP.PCM.PN ---
Subjective - Date & Time of Evaluation Date of Evaluation: 09/20/16 Time of Evaluation: 15:46 - Subjective Subjective: underwent Lap Cholecystectomy no reported arrhythmia Objective - Vital Signs/Intake and Output Vital Signs (last 24 hours): Temp Pulse Resp BP Pulse Ox 97.4 F L 67 14 163/72 H 98 09/20/16 13:07 09/20/16 13:07 09/20/16 13:07 09/20/16 13:07 09/20/16 13:07 Intake and Output: 09/20/16 09/20/16 06:59 18:59 Intake Total 480 75 Output Total 1999 Balance -1520 75 - Medications Medications: Current Medications Acetaminophen (Tylenol 325mg Tab) 650 mg PO Q6H [facility] Aspirin (Ecotrin) 81 mg PO DAILY [facility] Last Admin: 09/19/16 10:52 Dose: 81 mg Heparin Sodium (Porcine) (Heparin) 5,000 units SC Q12 [facility] PRN Reason: Protocol Hydromorphone HCl (Dilaudid) 0.5 mg IVP Q3 PRN PRN Reason: Pain, moderate (4-7) Hydromorphone HCl (Dilaudid) 1 mg IVP Q6H PRN PRN Reason: Pain, severe (8-10) Metronidazole (Flagyl) 500 mg in 100 mls @ 100 mls/hr IVPB Q8 [facility] PRN Reason: Protocol Last Admin: 09/20/16 15:17 Dose: 100 mls/hr Cefazolin Sodium (Ancef 1gm In Ns) 1 gm in 100 mls @ 200 mls/hr IVPB Q6H [facility] Stop: 09/21/16 06:44 Last Admin: 09/20/16 12:30 Dose: Not Given Lactated Ringer's (Lactated Ringer's) 1,000 mls @ 100 mls/hr IV .Q10H [facility] Ondansetron HCl (Zofran Inj) 4 mg IVP Q4H PRN PRN Reason: Nausea/Vomiting Pantoprazole Sodium (Protonix Inj) 40 mg IVP DAILY [facility] Last Admin: 09/20/16 15:15 Dose: Not Given - Labs Labs: 09/20/16 12:50 09/20/16 12:50 PT 11.8 Seconds (9.9-11.8) 09/20/16 12:50 INR 1.09 (0.93-1.08) H 09/20/16 12:50 APTT 27.1 Seconds (23.7-30.8) 09/20/16 12:50 - Constitutional Appears: Well - Head Exam Head Exam: NORMAL INSPECTION - Eye Exam Eye Exam: Normal appearance - Neck Exam Neck Exam: Normal Inspection - Respiratory Exam Respiratory Exam: NORMAL BREATHING PATTERN - Cardiovascular Exam Cardiovascular Exam: REGULAR RHYTHM - Extremities Exam Extremities Exam: Normal Inspection Assessment and Plan - Assessment and Plan (Free Text) Assessment: s/p cholecystectomy Mild to moderate pulmonary HTN Plan: Cont. current meds Postop EKG ordered
[2016-09-20] MEDS: HYDROmorphone 1 mg/ml ISec IVP PRN (17:13)
--- NOTE | 2016-09-20 19:58 | CARD ---
APPROVED REPORT EKG Measurement Heart [id number] <Conclusion> Normal sinus rhythm Normal ECG
[2016-09-20] MEDS: HYDROmorphone 0.5 mg/0.5 ml ISec IVP PRN (22:10)
[2016-09-21] MEDS: ceFAZolin 1 gm in NS 1 GM/100 ML BAG IVPB SCH ×2 (00:30→05:55)
[2016-09-21] MEDS: HYDROmorphone 1 mg/ml ISec IVP PRN (03:39)
[2016-09-21] MEDS: metroNIDAZOLE IV 500 mg/100 ml 500 MG/100 ML BAG IVPB SCH ×3 (05:55→21:48)
[2016-09-21 06:15] LABS: MEAN CELL VOLUME 91.8 fL (80.0-105.0); MEAN CORPUSCULAR HEMOGLOBIN 29.6 pg (25.0-35.0); MEAN CORPUSCULAR HGB CONC 32.2 g/dl (31.0-37.0); MEAN PLATELET VOLUME 11.3 fl (7.0-11.0); RBC 3.31 10^6/uL (3.5-6.1); RED CELL DISTRIBUTION WIDTH 13.3 % (11.5-14.5); WHITE BLOOD COUNT 12.3 10^3/ul (4.5-11.0)
[2016-09-21 06:25] LABS: ALB/GLOB RATIO 0.8 (1.1-1.8); ALBUMIN 2.7 g/dL (3.0-4.8); ALT/SGPT 62 U/L (7-56); AST/SGOT 64 U/L (15-39); BLOOD UREA NITROGEN 14 mg/dL (7-21); CALCIUM 8.2 mg/dL (8.4-10.5); GFR AFRICAN-AMERICAN > 60; GFR NON-AFRICAN AMERICAN > 60
[2016-09-21 06:29] LABS: HEMOGLOBIN 9.8 gm/dL (12.0-16.0)
--- NOTE | 2016-09-21 07:50 | CP.PCM.PN ---
Subjective - Date & Time of Evaluation Date of Evaluation: 09/21/16 Time of Evaluation: 07:46 - Subjective Subjective: Surgery for Dr. Marquez Pt s&e. Pt had lap marquise converted to open yesterday. Pt tolerated well. Denies F/C/N/V/D/Cp/SOB. Pt has appetite and thirsty. - amb. Pt uses wheelchair at home for h/o CVA. Objective - Vital Signs/Intake and Output Vital Signs (last 24 hours): Temp Pulse Resp BP Pulse Ox 98.6 F 68 18 163/86 H 99 09/20/16 16:00 09/20/16 16:00 09/20/16 16:00 09/20/16 16:00 09/20/16 16:00 Intake and Output: 09/21/16 09/21/16 06:59 18:59 Intake Total 0 0 Output Total 530 205 Balance -530 -205 - Medications Medications: Current Medications Acetaminophen (Tylenol 325mg Tab) 650 mg PO Q6H [facility] Aspirin (Ecotrin) 81 mg PO DAILY [facility] Last Admin: 09/19/16 10:52 Dose: 81 mg Heparin Sodium (Porcine) (Heparin) 5,000 units SC Q12 [facility] PRN Reason: Protocol Hydromorphone HCl (Dilaudid) 0.5 mg IVP Q3 PRN PRN Reason: Pain, moderate (4-7) Last Admin: 09/20/16 22:10 Dose: 0.5 mg Hydromorphone HCl (Dilaudid) 1 mg IVP Q6H PRN PRN Reason: Pain, severe (8-10) Last Admin: 09/21/16 03:39 Dose: 1 mg Metronidazole (Flagyl) 500 mg in 100 mls @ 100 mls/hr IVPB Q8 [facility] PRN Reason: Protocol Last Admin: 09/21/16 05:55 Dose: 100 mls/hr Lactated Ringer's (Lactated Ringer's) 1,000 mls @ 100 mls/hr IV .Q10H [facility] Ceftriaxone Sodium (Rocephin 1 Gram Ivpb) 1 gm in 100 mls @ 100 mls/hr IVPB DAILY [facility] PRN Reason: Protocol Ondansetron HCl (Zofran Inj) 4 mg IVP Q4H PRN PRN Reason: Nausea/Vomiting Pantoprazole Sodium (Protonix Inj) 40 mg IVP DAILY [facility] Last Admin: 09/20/16 15:15 Dose: Not Given - Labs Labs: 09/21/16 06:00 09/21/16 06:00 PT 11.8 Seconds (9.9-11.8) 09/20/16 12:50 INR 1.09 (0.93-1.08) H 09/20/16 12:50 APTT 27.1 Seconds (23.7-30.8) 09/20/16 12:50 - Constitutional Appears: Non-toxic, No Acute Distress - Head Exam Head Exam: ATRAUMATIC, NORMAL INSPECTION, NORMOCEPHALIC - Eye Exam Eye Exam: EOMI, Normal appearance, PERRL Pupil Exam: NORMAL ACCOMODATION, PERRL - ENT Exam ENT Exam: Mucous Membranes Moist, Normal Exam - Neck Exam Neck Exam: Full ROM, Normal Inspection. absent: Lymphadenopathy - Respiratory Exam Respiratory Exam: Clear to Ausculation Bilateral, NORMAL BREATHING PATTERN - Cardiovascular Exam Cardiovascular Exam: REGULAR RHYTHM, +S1, +S2. absent: Murmur - GI/Abdominal Exam GI & Abdominal Exam: Soft, Normal Bowel Sounds. absent: Distended, Firm, Guarding, Tenderness Additional comments: Dressing C/D/I. MARQUES in place: minimal output - Exam Exam: NORMAL INSPECTION Additional comments: Coulter in place 700/ON - Back Exam Back Exam: NORMAL INSPECTION - Neurological Exam Neurological Exam: Alert, Awake, CN II-XII Intact, Oriented x3 - Psychiatric Exam Psychiatric exam: Normal Affect, Normal Mood - Skin Skin Exam: Dry, Intact, Normal Color, Warm Assessment and Plan - Assessment and Plan (Free Text) Assessment: Open cholecystectomy POD 1 WBC 12 LFT trending down -DC coulter -Start CLD -Monitor labs -Dressing change PRN REGINALDO Oconnor
[2016-09-21] MEDS: HYDROmorphone 0.5 mg/0.5 ml ISec IVP PRN (08:11)
[2016-09-21] MEDS: Lactated Ringer's 1,000 ML IV SCH (09:21)
[2016-09-21] MEDS: cefTRIAXone 1 gm 1 GM/100 ML BAG IVPB SCH (09:23)
[2016-09-22] MEDS: HYDROmorphone 0.5 mg/0.5 ml ISec IVP PRN ×4 (03:01→20:19)
[2016-09-22] MEDS: metroNIDAZOLE IV 500 mg/100 ml 500 MG/100 ML BAG IVPB SCH ×3 (05:52→23:12)
[2016-09-22 06:42] LABS: BASO # 0.01 K/mm3 (0.0-2.0); BASO % 0.1 % (0.0-3.0); EOS % 0.2 % (1.5-5.0); GRAN # 7.13 (1.4-6.5); GRAN % 71.3 % (50.0-68.0); HEMOGLOBIN 9.2 gm/dL (12.0-16.0); LYMPH # 1.9 (1.2-3.4); LYMPH % 19.2 % (22.0-35.0); MEAN CELL VOLUME 92.9 fL (80.0-105.0); MEAN CORPUSCULAR HEMOGLOBIN 29.7 pg (25.0-35.0); MEAN CORPUSCULAR HGB CONC 31.9 g/dl (31.0-37.0); MEAN PLATELET VOLUME 10.1 fl (7.0-11.0); MONO # 0.9 (0.1-0.6); MONO % 9.2 % (1.0-6.0); PLATELET COUNT 336 10^3/uL (120.0-450.0); RED CELL DISTRIBUTION WIDTH 13.4 % (11.5-14.5)
[2016-09-22 06:49] LABS: ALB/GLOB RATIO 0.8 (1.1-1.8); ALBUMIN 2.5 g/dL (3.0-4.8); ALT/SGPT 56 U/L (7-56); AST/SGOT 42 U/L (15-39); BLOOD UREA NITROGEN 13 mg/dL (7-21); CALCIUM 8.1 mg/dL (8.4-10.5); GFR AFRICAN-AMERICAN > 60; GFR NON-AFRICAN AMERICAN > 60
[2016-09-22] MEDS ORDERED: Potassium Chloride 20 mEq ER Tab PO ONE (07:08)
--- NOTE | 2016-09-22 07:14 | CP.PCM.PN ---
<Keeley Trammell - Last Filed: 09/22/16 07:11> Subjective - Date & Time of Evaluation Date of Evaluation: 09/22/16 Time of Evaluation: 07:11 - Subjective Subjective: Surgery for Dr. Marquez Pt s&eAdam HUSTON. Tolerating CLD. Flatus. No BM. Dressing C/D/I. Minimal MARQUES output. + void. Pain controlled. Objective - Vital Signs/Intake and Output Vital Signs (last 24 hours): Temp Pulse Resp BP Pulse Ox 98.3 F 73 18 131/72 97 09/21/16 07:50 09/21/16 07:50 09/21/16 07:50 09/21/16 07:50 09/21/16 07:50 Intake and Output: 09/22/16 09/22/16 06:59 18:59 Intake Total 60 Output Total 152 Balance -92 - Medications Medications: Current Medications Acetaminophen (Tylenol 325mg Tab) 650 mg PO Q6H PRN PRN Reason: pain (1-3), fever Aspirin (Ecotrin) 81 mg PO DAILY [facility] Last Admin: 09/21/16 10:05 Dose: 81 mg Heparin Sodium (Porcine) (Heparin) 5,000 units SC Q12 [facility] PRN Reason: Protocol Last Admin: 09/21/16 21:47 Dose: 5,000 units Hydromorphone HCl (Dilaudid) 0.5 mg IVP Q3 PRN PRN Reason: Pain, severe (8-10) Last Admin: 09/22/16 03:01 Dose: 0.5 mg Metronidazole (Flagyl) 500 mg in 100 mls @ 100 mls/hr IVPB Q8 [facility] PRN Reason: Protocol Last Admin: 09/22/16 05:52 Dose: 100 mls/hr Lactated Ringer's (Lactated Ringer's) 1,000 mls @ 100 mls/hr IV .Q10H [facility] Last Admin: 09/21/16 09:21 Dose: 100 mls/hr Ceftriaxone Sodium (Rocephin 1 Gram Ivpb) 1 gm in 100 mls @ 100 mls/hr IVPB DAILY [facility] PRN Reason: Protocol Last Admin: 09/21/16 09:23 Dose: 100 mls/hr Ondansetron HCl (Zofran Inj) 4 mg IVP Q4H PRN PRN Reason: Nausea/Vomiting Oxycodone/Acetaminophen (Percocet 5/325 Mg Tab) 1 tab PO Q4H PRN PRN Reason: Pain, moderate (4-7) Stop: 09/24/16 11:01 Pantoprazole Sodium (Protonix Inj) 40 mg IVP DAILY [facility] Last Admin: 09/21/16 10:05 Dose: 40 mg Potassium Chloride (K-Dur 20 Meq Er Tab) 20 meq PO ONCE ONE Stop: 09/22/16 07:09 - Labs Labs: 09/22/16 06:00 09/22/16 06:00 PT 11.8 Seconds (9.9-11.8) 09/20/16 12:50 INR 1.09 (0.93-1.08) H 09/20/16 12:50 APTT 27.1 Seconds (23.7-30.8) 09/20/16 12:50 - Constitutional Appears: No Acute Distress - Head Exam Head Exam: ATRAUMATIC, NORMAL INSPECTION, NORMOCEPHALIC - Eye Exam Eye Exam: EOMI, Normal appearance, PERRL Pupil Exam: NORMAL ACCOMODATION, PERRL - ENT Exam ENT Exam: Mucous Membranes Moist, Normal Exam - Neck Exam Neck Exam: Full ROM, Normal Inspection. absent: Lymphadenopathy - Respiratory Exam Respiratory Exam: Clear to Ausculation Bilateral, NORMAL BREATHING PATTERN - Cardiovascular Exam Cardiovascular Exam: REGULAR RHYTHM, +S1, +S2. absent: Murmur - GI/Abdominal Exam GI & Abdominal Exam: Soft, Normal Bowel Sounds. absent: Distended, Firm, Guarding, Rigid, Tenderness, Hernia, Mass, Organomegaly, Rebound Additional comments: Dressing C/D/I. MInimal MARQUES output. - Exam Exam: NORMAL INSPECTION - Extremities Exam Extremities Exam: Full ROM, Normal Capillary Refill, Normal Inspection. absent : Joint Swelling, Pedal Edema - Back Exam Back Exam: NORMAL INSPECTION - Neurological Exam Neurological Exam: Alert, Awake, CN II-XII Intact, Normal Gait, Oriented x3 - Psychiatric Exam Psychiatric exam: Normal Affect, Normal Mood - Skin Skin Exam: Dry, Intact, Normal Color, Warm Assessment and Plan - Assessment and Plan (Free Text) Assessment: Open cholecystectomy POD 2 WBC 10 LFT trending down -Start FLD -Monitor labs -Medical management -Dressing change PRN DW Dr. Oconnor <Don Marquez - Last Filed: 09/29/16 16:57> Objective - Vital Signs/Intake and Output Vital Signs (last 24 hours): Temp Pulse Resp BP Pulse Ox 98.1 F 76 18 132/82 94 L 09/25/16 06:00 09/25/16 06:00 09/25/16 06:00 09/25/16 06:00 09/25/16 06:00 - Labs Labs: 09/25/16 07:00 09/25/16 07:00 PT 11.8 Seconds (9.9-11.8) 09/20/16 12:50 INR 1.09 (0.93-1.08) H 09/20/16 12:50 APTT 27.1 Seconds (23.7-30.8) 09/20/16 12:50 Attending/Attestation - Attestation I have personally seen and examined this patient.: Yes I have fully participated in the care of the patient.: Yes I have reviewed all pertinent clinical information, including history, physical exam and plan: Yes Notes (Text): 09/29/16 16:57 Pt was seen and examined at bedside on 09/22/16 Agree with above note and assessment
[2016-09-22] MEDS: cefTRIAXone 1 gm 1 GM/100 ML BAG IVPB SCH (09:24)
[2016-09-22] MEDS: Lactated Ringer's 1,000 ML IV SCH (17:52)
[2016-09-23] MEDS: HYDROmorphone 0.5 mg/0.5 ml ISec IVP PRN (03:43)
[2016-09-23] MEDS: metroNIDAZOLE IV 500 mg/100 ml 500 MG/100 ML BAG IVPB SCH ×3 (06:15→22:21)
[2016-09-23 07:37] LABS: BASO # 0.02 K/mm3 (0.0-2.0); BASO % 0.2 % (0.0-3.0); EOS # 0.2 (0.0-0.7); EOS % 1.6 % (1.5-5.0); GRAN # 6.73 (1.4-6.5); GRAN % 69.3 % (50.0-68.0); HEMOGLOBIN 10.2 gm/dL (12.0-16.0); LYMPH % 20.1 % (22.0-35.0); MEAN CELL VOLUME 92.6 fL (80.0-105.0); MEAN CORPUSCULAR HEMOGLOBIN 30.2 pg (25.0-35.0); MEAN CORPUSCULAR HGB CONC 32.6 g/dl (31.0-37.0); MEAN PLATELET VOLUME 11.3 fl (7.0-11.0); MONO # 0.9 (0.1-0.6); MONO % 8.8 % (1.0-6.0); PLATELET COUNT 134 10^3/uL (120.0-450.0); RBC 3.38 10^6/uL (3.5-6.1); RED CELL DISTRIBUTION WIDTH 13.3 % (11.5-14.5); WHITE BLOOD COUNT 9.7 10^3/ul (4.5-11.0)
--- NOTE | 2016-09-23 08:08 | CP.PCM.PN ---
<Kathryn Alonso - Last Filed: 09/23/16 11:28> Subjective - Date & Time of Evaluation Date of Evaluation: 09/23/16 Time of Evaluation: 06:50 - Subjective Subjective: General Surgery Dr. Marquez Pt S&E @bedside. NAEO. pain well controlled. denies F/C, N/V, D/C. tolerating diet. Objective - Vital Signs/Intake and Output Vital Signs (last 24 hours): Temp Pulse Resp BP Pulse Ox 99 F 95 H 20 158/87 H 81 L 09/22/16 17:30 09/22/16 17:30 09/22/16 17:30 09/22/16 17:30 09/22/16 17:30 Intake and Output: 09/23/16 09/23/16 06:59 18:59 Intake Total 180 Output Total 600 Balance -420 - Medications Medications: Current Medications Acetaminophen (Tylenol 325mg Tab) 650 mg PO Q6H PRN PRN Reason: pain (1-3), fever Aspirin (Ecotrin) 81 mg PO DAILY [facility] Last Admin: 09/22/16 09:23 Dose: 81 mg Heparin Sodium (Porcine) (Heparin) 5,000 units SC Q8 [facility] PRN Reason: Protocol Last Admin: 09/23/16 06:18 Dose: 5,000 units Metronidazole (Flagyl) 500 mg in 100 mls @ 100 mls/hr IVPB Q8 [facility] PRN Reason: Protocol Last Admin: 09/23/16 06:15 Dose: 100 mls/hr Ceftriaxone Sodium (Rocephin 1 Gram Ivpb) 1 gm in 100 mls @ 100 mls/hr IVPB DAILY [facility] PRN Reason: Protocol Last Admin: 09/22/16 09:24 Dose: 100 mls/hr Ondansetron HCl (Zofran Inj) 4 mg IVP Q4H PRN PRN Reason: Nausea/Vomiting Oxycodone/Acetaminophen (Percocet 5/325 Mg Tab) 1 tab PO Q4H PRN PRN Reason: Pain, moderate (4-7) Stop: 09/24/16 11:01 Pantoprazole Sodium (Protonix Inj) 40 mg IVP DAILY [facility] Last Admin: 09/22/16 09:23 Dose: 40 mg - Labs Labs: 09/23/16 07:00 09/22/16 06:00 PT 11.8 Seconds (9.9-11.8) 09/20/16 12:50 INR 1.09 (0.93-1.08) H 09/20/16 12:50 APTT 27.1 Seconds (23.7-30.8) 09/20/16 12:50 - Constitutional Appears: Non-toxic, No Acute Distress - Head Exam Head Exam: NORMAL INSPECTION - Eye Exam Eye Exam: Normal appearance - ENT Exam ENT Exam: Mucous Membranes Moist - Respiratory Exam Respiratory Exam: NORMAL BREATHING PATTERN. absent: Accessory Muscle Use, Respiratory Distress - GI/Abdominal Exam GI & Abdominal Exam: Soft, Tenderness (TTP mary-incisonal). absent: Distended, Guarding, Rigid, Rebound Additional comments: incision well approximated, c/d/i Dalton drain present - Extremities Exam Additional comments: RUE contractures - Neurological Exam Neurological Exam: Alert, Awake, Oriented x3 - Psychiatric Exam Psychiatric exam: Normal Mood - Skin Skin Exam: Dry, Intact, Normal Color, Warm Assessment and Plan - Assessment and Plan (Free Text) Assessment: 70 y/o F POD#3 s/p lap converted to open cholecystectomy - Advance diet as tolerated - wean pain meds - Monitor labs - Dressing change PRN - cont medical management Pt discussed w/ Dr. Alma Alonso DO PGY2 <Don Marquez - Last Filed: 09/29/16 17:03> Objective - Vital Signs/Intake and Output Vital Signs (last 24 hours): Temp Pulse Resp BP Pulse Ox 98.1 F 76 18 132/82 94 L 09/25/16 06:00 09/25/16 06:00 09/25/16 06:00 09/25/16 06:00 09/25/16 06:00 - Labs Labs: 09/25/16 07:00 09/25/16 07:00 PT 11.8 Seconds (9.9-11.8) 09/20/16 12:50 INR 1.09 (0.93-1.08) H 09/20/16 12:50 APTT 27.1 Seconds (23.7-30.8) 09/20/16 12:50 Attending/Attestation - Attestation I have personally seen and examined this patient.: Yes I have fully participated in the care of the patient.: Yes I have reviewed all pertinent clinical information, including history, physical exam and plan: Yes Notes (Text): 09/29/16 17:02 Pt was seen and examined at bedside on 09/23/16 Agree with above note and assessment DC Plan F.U as out pt for Drain removal Plan d.w pt and primary team in detail.
[2016-09-23 08:18] LABS: ALB/GLOB RATIO 0.9 (1.1-1.8); ALBUMIN 2.6 g/dL (3.0-4.8); ALT/SGPT 43 U/L (7-56); AST/SGOT 34 U/L (15-39); BLOOD UREA NITROGEN 8 mg/dL (7-21); GFR AFRICAN-AMERICAN > 60; GFR NON-AFRICAN AMERICAN > 60; MAGNESIUM 1.9 mg/dL (1.7-2.2)
[2016-09-23] MEDS: cefTRIAXone 1 gm 1 GM/100 ML BAG IVPB SCH (09:44)
[2016-09-23] MEDS: Oxycodone/Acetaminophen 5/325 mg Tab PO PRN ×2 (09:56→22:22)
--- NOTE | 2016-09-23 14:24 | CP.PCM.DIS ---
<SVETA JUAREZ - Last Filed: 09/23/16 17:41> Provider - Provider Date of Admission: 09/19/16 00:29 Attending physician: Montana Bennett MD Primary care physician: Zion Richter MD Time Spent in preparation of Discharge (in minutes): 45 Hospital Course - Lab Results Lab Results: Micro Results 09/20/16 11:30 Gallbladder Gram Stain - Final 09/20/16 11:30 Gallbladder Anaerobic Culture - Final NO ANAEROBES ISOLATED. 09/20/16 11:30 Gallbladder Wound Culture - Final No growth. 09/19/16 01:12 Blood Blood Culture - Preliminary NO GROWTH AFTER 4 DAYS Most Recent Lab Values WBC 9.7 10^3/ul (4.5-11.0) 09/23/16 07:00 RBC 3.38 10^6/uL (3.5-6.1) L 09/23/16 07:00 Hgb 10.2 gm/dL (12.0-16.0) L 09/23/16 07:00 Hct 31.3 % (36.0-48.0) L 09/23/16 07:00 MCV 92.6 fL (80.0-105.0) 09/23/16 07:00 MCH 30.2 pg (25.0-35.0) 09/23/16 07:00 MCHC 32.6 g/dl (31.0-37.0) 09/23/16 07:00 RDW 13.3 % (11.5-14.5) 09/23/16 07:00 Plt Count 134 10^3/uL (120.0-450.0) 09/23/16 07:00 MPV 11.3 fl (7.0-11.0) H 09/23/16 07:00 Gran % 69.3 % (50.0-68.0) H 09/23/16 07:00 Lymph % (Auto) 20.1 % (22.0-35.0) L 09/23/16 07:00 [place] % (Auto) 8.8 % (1.0-6.0) H 09/23/16 07:00 Eos % (Auto) 1.6 % (1.5-5.0) 09/23/16 07:00 Baso % (Auto) 0.2 % (0.0-3.0) 09/23/16 07:00 Gran # 6.73 (1.4-6.5) H 09/23/16 07:00 Lymph # 2.0 (1.2-3.4) 09/23/16 07:00 [place] # 0.9 (0.1-0.6) H 09/23/16 07:00 Eos # 0.2 (0.0-0.7) 09/23/16 07:00 Baso # 0.02 K/mm3 (0.0-2.0) 09/23/16 07:00 PT 11.8 Seconds (9.9-11.8) 09/20/16 12:50 INR 1.09 (0.93-1.08) H 09/20/16 12:50 APTT 27.1 Seconds (23.7-30.8) 09/20/16 12:50 Sodium 135 mmol/L (132-148) 09/23/16 07:00 Potassium 3.7 mmol/L (3.6-5.0) 09/23/16 07:00 Chloride 103 mmol/L (95-110) 09/23/16 07:00 Carbon Dioxide 24 mmol/L (21-33) 09/23/16 07:00 Anion Gap 12 (10-20) 09/23/16 07:00 BUN 8 mg/dL (7-21) 09/23/16 07:00 Creatinine 0.4 mg/dL (0.5-1.4) L 09/23/16 07:00 Est GFR ( Amer) > 60 09/23/16 07:00 Est GFR (Non-Af Amer) > 60 09/23/16 07:00 Random Glucose 96 mg/dL (70-110) 09/23/16 07:00 Calcium 8.0 mg/dL (8.4-10.5) L 09/23/16 07:00 Phosphorus 2.4 mg/dL (2.5-4.5) L 09/23/16 07:00 Magnesium 1.9 mg/dL (1.7-2.2) 09/23/16 07:00 Total Bilirubin 0.4 mg/dL (0.2-1.3) 09/23/16 07:00 AST 34 U/L (15-39) 09/23/16 07:00 ALT 43 U/L (7-56) 09/23/16 07:00 Alkaline Phosphatase 101 U/L (38-133) 09/23/16 07:00 Total Protein 5.5 g/dL (5.8-8.3) L 09/23/16 07:00 Albumin 2.6 g/dL (3.0-4.8) L 09/23/16 07:00 Globulin 2.9 gm/dL 09/23/16 07:00 Albumin/Globulin Ratio 0.9 (1.1-1.8) L 09/23/16 07:00 Lipase 93 U/L (23-300) 09/18/16 22:55 Urine Color Dark yellow (YELLOW) 09/19/16 05:32 Urine Appearance Sl cloudy (CLEAR) 09/19/16 05:32 Urine pH 6.0 (4.7-8.0) 09/19/16 05:32 Ur Specific [place] 1.025 (1.005-1.035) 09/19/16 05:32 Urine Protein 30 mg/dL (<30 mg/dL) H 09/19/16 05:32 Urine Glucose (UA) Negative mg/dL (NEGATIVE) 09/19/16 05:32 Urine Ketones 40 mg/dL (NEGATIVE) H 09/19/16 05:32 Urine Blood Negative (NEGATIVE) 09/19/16 05:32 Urine Nitrate Negative (NEGATIVE) 09/19/16 05:32 Urine Bilirubin Small (NEGATIVE) H 09/19/16 05:32 Urine Urobilinogen >=8.0 E.U./dL (<1 E.U./dL) 09/19/16 05:32 Ur Leukocyte Esterase Negative Kwaku/uL (NEGATIVE) 09/19/16 05:32 Urine RBC 0 - 2 /hpf (0-2) 09/19/16 05:32 Urine WBC 0 - 2 /hpf (0-6) 09/19/16 05:32 Ur Epithelial Cells 3 - 4 /hpf (0-5) 09/19/16 05:32 Urine Bacteria Few (NEG) 09/19/16 05:32 Blood Type O POSITIVE 09/19/16 07:00 Blood Type Confirm O POSITIVE 09/19/16 07:30 Antibody Screen Negative 09/19/16 07:00 BBK History Checked No verified bt 09/19/16 07:00 - Hospital Course Hospital Course: 70 yo F PMHx CVA x2 and HLD presented to the ED on 09/18/16 c/o upper abdominal pain for the past 5 days. Family reported associated decreased appetite, 1 episode of vomiting and constipation. Denied fevers, chills, chest pain, shortness of breath, or any urinary changes. In ED, abdomial US showed diffuse gallbladder wall thickening, partially distended gallbladder with shadowing stones and minimal sludge. EKG showed normal sinus rhythm.Total bili, AST/ALT, ALKP were elevated. Afebrile with leukocytosis of 13.1 on admission. Pt was started on cipro/flagyl and given zofran for n/v. Surgery was consulted and recommended MRCP to r/o choledocholithiasis but stated no need for emergent surgical intervention, and pt would need lap cholecystectomy. MRCP on 09/19/16 showed no evidence of choledocholithiasis, but showed evidence of cholecystitis. HIDA on 09/19/16 showed cystic duct occluded. GI was consulted on 09/19/16 for acute cholecystitis (for which they recommended surgical eval) and elevated LFTs (recommended zosyn IV and checking vital hepatitis serologies and rechecking LFTs in 2wks) Pt underwent a laparoscopic cholecystectomy that was converted to open partial cholecystectomy w/ extensive lysis of adhesions on 09/20/16. WBC trended down from 14.3 on 09/20/16 to 9.7 on 09/23/16. Pt tolerated the surgery well and has a good appetite. Patient is not ambulating yet (uses wheelchair at home due to h/o CVA). Today, the patient had no complaints and was in no apparent distress. Patient to be transferred to [facility] once bed is available. Continue antibiotics there. - Date & Time of H&P Date of H&P: 09/19/16 Time of H&P: 01:00 Discharge Exam - Head Exam Head Exam: ATRAUMATIC, NORMAL INSPECTION, NORMOCEPHALIC - Eye Exam Eye Exam: Normal appearance - ENT Exam ENT Exam: Mucous Membranes Moist, Normal Exam - Respiratory Exam Respiratory Exam: Clear to PA & Lateral, NORMAL BREATHING PATTERN. absent: Rales, Rhonchi, Wheezes - Cardiovascular Exam Cardiovascular Exam: REGULAR RHYTHM, +S1, +S2. absent: Gallop, Rubs, Systolic Murmur - GI/Abdominal Exam GI & Abdominal Exam: Guarding, Soft, Unremarkable Additional comments: Incision sites are dry, non-erythematous and clean - Neurological Exam Neurological exam: Alert - Psychiatric Exam Psychiatric exam: Normal Affect, Normal Mood Discharge Plan - Follow Up Plan Condition: STABLE Disposition: TRANSF TO SNF Instructions: Cholecystitis (DC), Cholecystitis (GEN), Biliary Colic (GEN) Additional Instructions: Patient discharged to [facility] in [place], [place] Referrals: Zion Richter MD [Primary Care Provider] - <Sabrina UREÑA,[facility] - Last Filed: 10/05/16 11:25> Provider - Provider Date of Admission: 09/19/16 00:29 Attending physician: Samuel Jenkins MD Primary care physician: Zion Richter MD Hospital Course - Lab Results Lab Results: Micro Results 09/19/16 01:12 Blood Blood Culture - Final NO GROWTH AFTER 5 DAYS 09/19/16 01:12 Blood Gram Stain - Final TEST NOT PERFORMED 09/20/16 11:30 Gallbladder Gram Stain - Final 09/20/16 11:30 Gallbladder Anaerobic Culture - Final NO ANAEROBES ISOLATED. 09/20/16 11:30 Gallbladder Wound Culture - Final No growth. Most Recent Lab Values WBC 9.7 10^3/ul (4.5-11.0) 09/25/16 07:00 RBC 3.34 10^6/uL (3.5-6.1) L 09/25/16 07:00 Hgb 10.0 gm/dL (12.0-16.0) L 09/25/16 07:00 Hct 30.3 % (36.0-48.0) L 09/25/16 07:00 MCV 90.7 fL (80.0-105.0) 09/25/16 07:00 MCH 29.9 pg (25.0-35.0) 09/25/16 07:00 MCHC 33.0 g/dl (31.0-37.0) 09/25/16 07:00 RDW 13.3 % (11.5-14.5) 09/25/16 07:00 Plt Count 465 10^3/uL (120.0-450.0) H 09/25/16 07:00 MPV 9.8 fl (7.0-11.0) 09/25/16 07:00 Gran % 75.0 % (50.0-68.0) H 09/24/16 06:30 Lymph % (Auto) 16.3 % (22.0-35.0) L 09/24/16 06:30 [place] % (Auto) 7.1 % (1.0-6.0) H 09/24/16 06:30 Eos % (Auto) 1.5 % (1.5-5.0) 09/24/16 06:30 Baso % (Auto) 0.1 % (0.0-3.0) 09/24/16 06:30 Gran # 6.55 (1.4-6.5) H 09/24/16 06:30 Lymph # 1.4 (1.2-3.4) 09/24/16 06:30 [place] # 0.6 (0.1-0.6) 09/24/16 06:30 Eos # 0.1 (0.0-0.7) 09/24/16 06:30 Baso # 0.01 K/mm3 (0.0-2.0) 09/24/16 06:30 PT 11.8 Seconds (9.9-11.8) 09/20/16 12:50 INR 1.09 (0.93-1.08) H 09/20/16 12:50 APTT 27.1 Seconds (23.7-30.8) 09/20/16 12:50 Sodium 136 mmol/L (132-148) 09/25/16 07:00 Potassium 3.2 mmol/L (3.6-5.0) L 09/25/16 07:00 Chloride 105 mmol/L (95-110) 09/25/16 07:00 Carbon Dioxide 25 mmol/L (21-33) 09/25/16 07:00 Anion Gap 9 (10-20) L 09/25/16 07:00 BUN 11 mg/dL (7-21) 09/25/16 07:00 Creatinine 0.4 mg/dL (0.5-1.4) L 09/25/16 07:00 Est GFR ( Amer) > 60 09/25/16 07:00 Est GFR (Non-Af Amer) > 60 09/25/16 07:00 Random Glucose 108 mg/dL (70-110) 09/25/16 07:00 Calcium 7.9 mg/dL (8.4-10.5) L 09/25/16 07:00 Phosphorus 2.4 mg/dL (2.5-4.5) L 09/23/16 07:00 Magnesium 1.9 mg/dL (1.7-2.2) 09/23/16 07:00 Total Bilirubin 0.4 mg/dL (0.2-1.3) 09/24/16 06:30 AST 30 U/L (15-39) 09/24/16 06:30 ALT 47 U/L (7-56) 09/24/16 06:30 Alkaline Phosphatase 88 U/L (38-133) 09/24/16 06:30 Total Protein 5.5 g/dL (5.8-8.3) L 09/24/16 06:30 Albumin 2.5 g/dL (3.0-4.8) L 09/24/16 06:30 Globulin 3.0 gm/dL 09/24/16 06:30 Albumin/Globulin Ratio 0.8 (1.1-1.8) L 09/24/16 06:30 Lipase 93 U/L (23-300) 09/18/16 22:55 Urine Color Dark yellow (YELLOW) 09/19/16 05:32 Urine Appearance Sl cloudy (CLEAR) 09/19/16 05:32 Urine pH 6.0 (4.7-8.0) 09/19/16 05:32 Ur Specific [place] 1.025 (1.005-1.035) 09/19/16 05:32 Urine Protein 30 mg/dL (<30 mg/dL) H 09/19/16 05:32 Urine Glucose (UA) Negative mg/dL (NEGATIVE) 09/19/16 05:32 Urine Ketones 40 mg/dL (NEGATIVE) H 09/19/16 05:32 Urine Blood Negative (NEGATIVE) 09/19/16 05:32 Urine Nitrate Negative (NEGATIVE) 09/19/16 05:32 Urine Bilirubin Small (NEGATIVE) H 09/19/16 05:32 Urine Urobilinogen >=8.0 E.U./dL (<1 E.U./dL) 09/19/16 05:32 Ur Leukocyte Esterase Negative Kwaku/uL (NEGATIVE) 09/19/16 05:32 Urine RBC 0 - 2 /hpf (0-2) 09/19/16 05:32 Urine WBC 0 - 2 /hpf (0-6) 09/19/16 05:32 Ur Epithelial Cells 3 - 4 /hpf (0-5) 09/19/16 05:32 Urine Bacteria Few (NEG) 09/19/16 05:32 Blood Type O POSITIVE 09/19/16 07:00 Blood Type Confirm O POSITIVE 09/19/16 07:30 Antibody Screen Negative 09/19/16 07:00 BBK History Checked No verified bt 09/19/16 07:00 Attending/Attestation - Attestation I have personally seen and examined this patient.: Yes I have fully participated in the care of the patient.: Yes I have reviewed all pertinent clinical information, including history, physical exam and plan: Yes Notes (Text): 10/05/16 11:23 Patient was seen and examined with biomedical engineering technician .Agreed with resident assessment and plan. 70 year old female with history of CVA x2 with residual right sided weakness, hyperlipidemia who underwent open cholecystectomy and has a biliary drain (POD#3 ) on rocephin and flagyl. Patient is very deconditioned, need rehabilitation, she was not accepted to TCU , will hold discharge. Management plan was discussed in detail with patient Education was provided.
--- NOTE | 2016-09-23 14:25 | CP.PCM.PN ---
Subjective - Date & Time of Evaluation Date of Evaluation: 09/23/16 Time of Evaluation: 14:31 - Subjective Subjective: No c/p or sob Objective - Vital Signs/Intake and Output Vital Signs (last 24 hours): Temp Pulse Resp BP Pulse Ox 99 F 80 20 163/91 H 99 09/23/16 08:55 09/23/16 08:55 09/23/16 08:55 09/23/16 08:55 09/23/16 08:55 Intake and Output: 09/23/16 09/23/16 06:59 18:59 Intake Total 180 Output Total 600 Balance -420 - Medications Medications: Current Medications Acetaminophen (Tylenol 325mg Tab) 650 mg PO Q6H PRN PRN Reason: pain (1-3), fever Aspirin (Ecotrin) 81 mg PO DAILY [facility] Last Admin: 09/23/16 09:43 Dose: 81 mg Heparin Sodium (Porcine) (Heparin) 5,000 units SC Q8 [facility] PRN Reason: Protocol Last Admin: 09/23/16 06:18 Dose: 5,000 units Metronidazole (Flagyl) 500 mg in 100 mls @ 100 mls/hr IVPB Q8 [facility] PRN Reason: Protocol Last Admin: 09/23/16 06:15 Dose: 100 mls/hr Ceftriaxone Sodium (Rocephin 1 Gram Ivpb) 1 gm in 100 mls @ 100 mls/hr IVPB DAILY [facility] PRN Reason: Protocol Last Admin: 09/23/16 09:44 Dose: 100 mls/hr Ondansetron HCl (Zofran Inj) 4 mg IVP Q4H PRN PRN Reason: Nausea/Vomiting Oxycodone/Acetaminophen (Percocet 5/325 Mg Tab) 1 tab PO Q4H PRN PRN Reason: Pain, moderate (4-7) Stop: 09/24/16 11:01 Last Admin: 09/23/16 09:56 Dose: 1 tab Pantoprazole Sodium (Protonix Inj) 40 mg IVP DAILY [facility] Last Admin: 09/23/16 09:43 Dose: 40 mg - Labs Labs: 09/23/16 07:00 09/23/16 07:00 PT 11.8 Seconds (9.9-11.8) 09/20/16 12:50 INR 1.09 (0.93-1.08) H 09/20/16 12:50 APTT 27.1 Seconds (23.7-30.8) 09/20/16 12:50 - Head Exam Head Exam: NORMAL INSPECTION - Eye Exam Eye Exam: Normal appearance - Neck Exam Neck Exam: Normal Inspection - Respiratory Exam Respiratory Exam: NORMAL BREATHING PATTERN - Cardiovascular Exam Cardiovascular Exam: REGULAR RHYTHM - Extremities Exam Extremities Exam: Normal Inspection Assessment and Plan - Assessment and Plan (Free Text) Assessment: s/p cholecystectomy Postop EKG, NSR Plan: Cont. Acetaminophen (Tylenol 325mg Tab) 650 mg PO Q6H PRN PRN Reason: pain (1-3), fever Aspirin (Ecotrin) 81 mg PO DAILY [facility] Last Admin: 09/23/16 09:43 Dose: 81 mg Heparin Sodium (Porcine) (Heparin) 5,000 units SC Q8 [facility] PRN Reason: Protocol Last Admin: 09/23/16 06:18 Dose: 5,000 units Metronidazole (Flagyl) 500 mg in 100 mls @ 100 mls/hr IVPB Q8 [facility] PRN Reason: Protocol Last Admin: 09/23/16 06:15 Dose: 100 mls/hr Ceftriaxone Sodium (Rocephin 1 Gram Ivpb) 1 gm in 100 mls @ 100 mls/hr IVPB DAILY [facility] PRN Reason: Protocol Last Admin: 09/23/16 09:44 Dose: 100 mls/hr Ondansetron HCl (Zofran Inj) 4 mg IVP Q4H PRN PRN Reason: Nausea/Vomiting Oxycodone/Acetaminophen (Percocet 5/325 Mg Tab) 1 tab PO Q4H PRN PRN Reason: Pain, moderate (4-7) Stop: 09/24/16 11:01 Last Admin: 09/23/16 09:56 Dose: 1 tab Pantoprazole Sodium (Protonix Inj) 40 mg IVP DAILY [facility] Last Admin: 09/23/16 09:43 Dose: 40 mg
[2016-09-24] MEDS: metroNIDAZOLE IV 500 mg/100 ml 500 MG/100 ML BAG IVPB SCH ×3 (05:47→22:12)
[2016-09-24 06:58] LABS: BASO # 0.01 K/mm3 (0.0-2.0); BASO % 0.1 % (0.0-3.0); EOS # 0.1 (0.0-0.7); EOS % 1.5 % (1.5-5.0); GRAN # 6.55 (1.4-6.5); HEMOGLOBIN 10.3 gm/dL (12.0-16.0); LYMPH # 1.4 (1.2-3.4); LYMPH % 16.3 % (22.0-35.0); MEAN CELL VOLUME 91.6 fL (80.0-105.0); MEAN CORPUSCULAR HEMOGLOBIN 29.9 pg (25.0-35.0); MEAN CORPUSCULAR HGB CONC 32.7 g/dl (31.0-37.0); MONO # 0.6 (0.1-0.6); MONO % 7.1 % (1.0-6.0); PLATELET COUNT 394 10^3/uL (120.0-450.0); RBC 3.44 10^6/uL (3.5-6.1); RED CELL DISTRIBUTION WIDTH 13.2 % (11.5-14.5); WHITE BLOOD COUNT 8.7 10^3/ul (4.5-11.0)
[2016-09-24 07:09] LABS: ALB/GLOB RATIO 0.8 (1.1-1.8); ALBUMIN 2.5 g/dL (3.0-4.8); ALT/SGPT 47 U/L (7-56); AST/SGOT 30 U/L (15-39); BLOOD UREA NITROGEN 8 mg/dL (7-21); CALCIUM 7.8 mg/dL (8.4-10.5); GFR AFRICAN-AMERICAN > 60; GFR NON-AFRICAN AMERICAN > 60
[2016-09-24] MEDS ORDERED: Potassium Chloride 20 mEq ER Tab PO STA (08:13)
--- NOTE | 2016-09-24 08:53 | CP.PCM.PN ---
Subjective - Date & Time of Evaluation Date of Evaluation: 09/24/16 Time of Evaluation: 07:00 - Subjective Subjective: Patient seen and examined this morning. No complaints. Denies fever/chills, n/ v. Drain output: 10cc/24hr serosanguinous. Surgical incision sites clean, non- erythematous. Objective - Vital Signs/Intake and Output Vital Signs (last 24 hours): Temp Pulse Resp BP Pulse Ox 98.7 F 81 20 154/86 H 94 L 09/23/16 16:00 09/23/16 16:00 09/23/16 16:00 09/23/16 16:00 09/23/16 16:00 Intake and Output: 09/24/16 09/24/16 06:59 18:59 Intake Total 520 Output Total 410 Balance 110 - Medications Medications: Current Medications Acetaminophen (Tylenol 325mg Tab) 650 mg PO Q6H PRN PRN Reason: pain (1-3), fever Aspirin (Ecotrin) 81 mg PO DAILY [facility] Last Admin: 09/23/16 09:43 Dose: 81 mg Heparin Sodium (Porcine) (Heparin) 5,000 units SC Q8 [facility] PRN Reason: Protocol Last Admin: 09/24/16 05:47 Dose: 5,000 units Metronidazole (Flagyl) 500 mg in 100 mls @ 100 mls/hr IVPB Q8 [facility] PRN Reason: Protocol Last Admin: 09/24/16 05:47 Dose: 100 mls/hr Ceftriaxone Sodium (Rocephin 1 Gram Ivpb) 1 gm in 100 mls @ 100 mls/hr IVPB DAILY [facility] PRN Reason: Protocol Last Admin: 09/23/16 09:44 Dose: 100 mls/hr Ondansetron HCl (Zofran Inj) 4 mg IVP Q4H PRN PRN Reason: Nausea/Vomiting Last Admin: 09/24/16 08:21 Dose: 4 mg Oxycodone/Acetaminophen (Percocet 5/325 Mg Tab) 1 tab PO Q4H PRN PRN Reason: Pain, moderate (4-7) Stop: 09/24/16 11:01 Last Admin: 09/23/16 09:56 Dose: 1 tab Pantoprazole Sodium (Protonix Inj) 40 mg IVP DAILY [facility] Last Admin: 09/23/16 09:43 Dose: 40 mg - Labs Labs: 09/24/16 06:30 09/24/16 06:30 PT 11.8 Seconds (9.9-11.8) 09/20/16 12:50 INR 1.09 (0.93-1.08) H 09/20/16 12:50 APTT 27.1 Seconds (23.7-30.8) 09/20/16 12:50 - Constitutional Appears: No Acute Distress - Head Exam Head Exam: NORMOCEPHALIC - Eye Exam Eye Exam: Normal appearance - ENT Exam ENT Exam: Mucous Membranes Moist - Respiratory Exam Respiratory Exam: NORMAL BREATHING PATTERN - Cardiovascular Exam Cardiovascular Exam: +S1, +S2 - GI/Abdominal Exam GI & Abdominal Exam: Soft. absent: Distended, Guarding, Rigid - Neurological Exam Neurological Exam: Alert, Awake - Psychiatric Exam Psychiatric exam: Normal Mood - Skin Skin Exam: Dry, Intact, Warm. absent: Erythema Assessment and Plan - Assessment and Plan (Free Text) Assessment: 70 y/o F POD#4 s/p lap converted to open cholecystectomy - Monitor labs -Patient to be transferred to subacute rehab -Surgical drain to remain in place, will remove in office. -Surgical incisions clean/dry/intact - cont medical management Further recs per Dr. Marquez
[2016-09-24 08:54] VITALS: RESP 18
[2016-09-24] MEDS: cefTRIAXone 1 gm 1 GM/100 ML BAG IVPB SCH (09:20)
--- NOTE | 2016-09-24 11:50 | CP.PCM.PN ---
<Bao Vaca - Last Filed: 09/24/16 11:50> Subjective - Date & Time of Evaluation Date of Evaluation: 09/21/16 Time of Evaluation: 09:00 - Subjective Subjective: Medicine progress note: Pt seen and examined at bedside. No acute events overnight. Pt c/o mild abdominal pain, no n/v. Denies any rodriguez, dizziness, f/c, sob, cp. Objective - Vital Signs/Intake and Output Vital Signs (last 24 hours): Temp Pulse Resp BP Pulse Ox 98.3 F 73 18 131/72 97 09/21/16 07:50 09/21/16 07:50 09/21/16 07:50 09/21/16 07:50 09/21/16 07:50 Intake and Output: 09/21/16 09/21/16 06:59 18:59 Intake Total 0 0 Output Total 530 205 Balance -530 -205 - Medications Medications: Current Medications Acetaminophen (Tylenol 325mg Tab) 650 mg PO Q6H PRN PRN Reason: pain (1-3), fever Aspirin (Ecotrin) 81 mg PO DAILY [facility] Last Admin: 09/21/16 10:05 Dose: 81 mg Heparin Sodium (Porcine) (Heparin) 5,000 units SC Q12 [facility] PRN Reason: Protocol Last Admin: 09/21/16 10:05 Dose: 5,000 units Hydromorphone HCl (Dilaudid) 0.5 mg IVP Q3 PRN PRN Reason: Pain, severe (8-10) Metronidazole (Flagyl) 500 mg in 100 mls @ 100 mls/hr IVPB Q8 [facility] PRN Reason: Protocol Last Admin: 09/21/16 05:55 Dose: 100 mls/hr Lactated Ringer's (Lactated Ringer's) 1,000 mls @ 100 mls/hr IV .Q10H [facility] Last Admin: 09/21/16 09:21 Dose: 100 mls/hr Ceftriaxone Sodium (Rocephin 1 Gram Ivpb) 1 gm in 100 mls @ 100 mls/hr IVPB DAILY [facility] PRN Reason: Protocol Last Admin: 09/21/16 09:23 Dose: 100 mls/hr Ondansetron HCl (Zofran Inj) 4 mg IVP Q4H PRN PRN Reason: Nausea/Vomiting Oxycodone/Acetaminophen (Percocet 5/325 Mg Tab) 1 tab PO Q4H PRN PRN Reason: Pain, moderate (4-7) Stop: 09/24/16 11:01 Pantoprazole Sodium (Protonix Inj) 40 mg IVP DAILY [facility] Last Admin: 09/21/16 10:05 Dose: 40 mg - Labs Labs: 09/21/16 06:00 09/21/16 06:00 PT 11.8 Seconds (9.9-11.8) 09/20/16 12:50 INR 1.09 (0.93-1.08) H 09/20/16 12:50 APTT 27.1 Seconds (23.7-30.8) 09/20/16 12:50 - Constitutional Appears: No Acute Distress Assessment and Plan - Assessment and Plan (Free Text) Assessment: 70yo female with history of CVA x2, hyperlipidemia presents c/o RUQ abdominal pain found to have acute Cholecystitis s/p Lap marquise convereted to open, drain placed, POD 1. 1. Acute cholecystitis s/p lap marquise converted to open - Wean pain medications - Ancef and flagyl - Drain and dressing management as per surgery - HIDA scan shows occluded cystic duct consistent with acute marquise - MRCP - no evidence of choledocholithiasis -Abdominal US revealed gallstones with gallbladder wall thickening measuring 9.5mm in width, minimal sludge, CBD measures 6.6mm in diameter -Zofran PRN for nausea/vomiting -Cardiology consulted - Dr. Okeefe -Surgery consulted - Dr. Marquez - surgery today 2. History of CVA - Continue ASA 81 - Echo shows normal EF, mild to mod TR, and plum HTN 3. GI/DVT prophylaxis -Protonix/Heparin Case and plan was seen, reviewed and discussed in detail with Dr Bennett. <aSbrina UREÑA,Ana Marialower [facility] - Last Filed: 10/05/16 11:20> Objective - Vital Signs/Intake and Output Vital Signs (last 24 hours): Temp Pulse Resp BP Pulse Ox 98.1 F 76 18 132/82 94 L 09/25/16 06:00 09/25/16 06:00 09/25/16 06:00 09/25/16 06:00 09/25/16 06:00 - Labs Labs: 09/25/16 07:00 09/25/16 07:00 PT 11.8 Seconds (9.9-11.8) 09/20/16 12:50 INR 1.09 (0.93-1.08) H 09/20/16 12:50 APTT 27.1 Seconds (23.7-30.8) 09/20/16 12:50 Attending/Attestation - Attestation I have personally seen and examined this patient.: Yes I have fully participated in the care of the patient.: Yes I have reviewed all pertinent clinical information, including history, physical exam and plan: Yes Notes (Text): 10/05/16 11:17 Patient was seen and examined with medical laboratory assistant .Agreed with resident assessment and plan. Patient with SP open cholycystectomy, and right upper quadrant drain after surgery, still having low of pain, surgery if following, We will continue monitoring. Management plan was discussed in detail with patient Education was provided.
--- NOTE | 2016-09-24 12:45 | CP.PCM.PN ---
Subjective - Date & Time of Evaluation Date of Evaluation: 09/24/16 Time of Evaluation: 12:43 - Subjective Subjective: no sob Objective - Vital Signs/Intake and Output Vital Signs (last 24 hours): Temp Pulse Resp BP Pulse Ox 98.7 F 81 18 140/75 95 09/23/16 16:00 09/24/16 06:00 09/24/16 06:00 09/24/16 06:00 09/24/16 06:00 Intake and Output: 09/24/16 09/24/16 06:59 18:59 Intake Total 520 Output Total 410 Balance 110 - Medications Medications: Current Medications Acetaminophen (Tylenol 325mg Tab) 650 mg PO Q6H PRN PRN Reason: pain (1-3), fever Aspirin (Ecotrin) 81 mg PO DAILY [facility] Last Admin: 09/24/16 09:21 Dose: 81 mg Heparin Sodium (Porcine) (Heparin) 5,000 units SC Q8 [facility] PRN Reason: Protocol Last Admin: 09/24/16 05:47 Dose: 5,000 units Metronidazole (Flagyl) 500 mg in 100 mls @ 100 mls/hr IVPB Q8 [facility] PRN Reason: Protocol Last Admin: 09/24/16 05:47 Dose: 100 mls/hr Ceftriaxone Sodium (Rocephin 1 Gram Ivpb) 1 gm in 100 mls @ 100 mls/hr IVPB DAILY [facility] PRN Reason: Protocol Last Admin: 09/24/16 09:20 Dose: 100 mls/hr Ondansetron HCl (Zofran Inj) 4 mg IVP Q4H PRN PRN Reason: Nausea/Vomiting Last Admin: 09/24/16 08:21 Dose: 4 mg Pantoprazole Sodium (Protonix Inj) 40 mg IVP DAILY [facility] Last Admin: 09/24/16 09:21 Dose: 40 mg - Labs Labs: 09/24/16 06:30 09/24/16 06:30 PT 11.8 Seconds (9.9-11.8) 09/20/16 12:50 INR 1.09 (0.93-1.08) H 09/20/16 12:50 APTT 27.1 Seconds (23.7-30.8) 09/20/16 12:50 - Constitutional Appears: Non-toxic - Head Exam Head Exam: NORMAL INSPECTION - Neck Exam Neck Exam: Normal Inspection - Respiratory Exam Respiratory Exam: Decreased Breath Sounds - Extremities Exam Extremities Exam: Normal Inspection Assessment and Plan - Assessment and Plan (Free Text) Assessment: s/p cholecystectomy H/o CVa Hypokalemia Plan: Cont. Acetaminophen (Tylenol 325mg Tab) 650 mg PO Q6H PRN PRN Reason: pain (1-3), fever Aspirin (Ecotrin) 81 mg PO DAILY [facility] Last Admin: 09/24/16 09:21 Dose: 81 mg Heparin Sodium (Porcine) (Heparin) 5,000 units SC Q8 [facility] PRN Reason: Protocol Last Admin: 09/24/16 05:47 Dose: 5,000 units Metronidazole (Flagyl) 500 mg in 100 mls @ 100 mls/hr IVPB Q8 [facility] PRN Reason: Protocol Last Admin: 09/24/16 05:47 Dose: 100 mls/hr Ceftriaxone Sodium (Rocephin 1 Gram Ivpb) 1 gm in 100 mls @ 100 mls/hr IVPB DAILY [facility] PRN Reason: Protocol Last Admin: 09/24/16 09:20 Dose: 100 mls/hr Ondansetron HCl (Zofran Inj) 4 mg IVP Q4H PRN PRN Reason: Nausea/Vomiting Last Admin: 09/24/16 08:21 Dose: 4 mg Pantoprazole Sodium (Protonix Inj) 40 mg IVP DAILY [facility] Last Admin: 09/24/16 09:21 Dose: 40 mg Kdur 40 Meq given BMP in AM
--- NOTE | 2016-09-24 14:20 | CP.PCM.PN ---
<SVETA HOWARD - Last Filed: 09/24/16 14:27> Subjective - Date & Time of Evaluation Date of Evaluation: 09/24/16 Time of Evaluation: 09:10 - Subjective Subjective: Pt seen and examined bedside. Pt denies any chest pain, palpitations, shortness of breath, or fevers. states that she had some n/v but that her abomdinal pain is bearable. Patient is passing flatus but denies any bowel movements; urinating well with no pain. Objective - Vital Signs/Intake and Output Vital Signs (last 24 hours): Temp Pulse Resp BP Pulse Ox 98.7 F 81 18 140/75 95 09/23/16 16:00 09/24/16 06:00 09/24/16 06:00 09/24/16 06:00 09/24/16 06:00 Intake and Output: 09/24/16 09/24/16 06:59 18:59 Intake Total 520 Output Total 410 Balance 110 - Medications Medications: Current Medications Acetaminophen (Tylenol 325mg Tab) 650 mg PO Q6H PRN PRN Reason: pain (1-3), fever Aspirin (Ecotrin) 81 mg PO DAILY [facility] Last Admin: 09/24/16 09:21 Dose: 81 mg Heparin Sodium (Porcine) (Heparin) 5,000 units SC Q8 [facility] PRN Reason: Protocol Last Admin: 09/24/16 05:47 Dose: 5,000 units Metronidazole (Flagyl) 500 mg in 100 mls @ 100 mls/hr IVPB Q8 [facility] PRN Reason: Protocol Last Admin: 09/24/16 05:47 Dose: 100 mls/hr Ceftriaxone Sodium (Rocephin 1 Gram Ivpb) 1 gm in 100 mls @ 100 mls/hr IVPB DAILY [facility] PRN Reason: Protocol Last Admin: 09/24/16 09:20 Dose: 100 mls/hr Ondansetron HCl (Zofran Inj) 4 mg IVP Q4H PRN PRN Reason: Nausea/Vomiting Last Admin: 09/24/16 08:21 Dose: 4 mg Pantoprazole Sodium (Protonix Inj) 40 mg IVP DAILY [facility] Last Admin: 09/24/16 09:21 Dose: 40 mg - Labs Labs: 09/24/16 06:30 09/24/16 06:30 PT 11.8 Seconds (9.9-11.8) 09/20/16 12:50 INR 1.09 (0.93-1.08) H 09/20/16 12:50 APTT 27.1 Seconds (23.7-30.8) 09/20/16 12:50 - Constitutional Appears: Well, No Acute Distress - Head Exam Head Exam: ATRAUMATIC, NORMOCEPHALIC - Eye Exam Eye Exam: Normal appearance - ENT Exam ENT Exam: Mucous Membranes Moist, Normal Exam - Respiratory Exam Respiratory Exam: Clear to Ausculation Bilateral, NORMAL BREATHING PATTERN. absent: Rales, Rhonchi, Wheezes, Respiratory Distress - Cardiovascular Exam Cardiovascular Exam: RRR, +S1, +S2. absent: Gallop, Rubs, Murmur - GI/Abdominal Exam GI & Abdominal Exam: Soft, Tenderness (mild tenderness to palpation). 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 1. Cholecystitis s/p lap cholecystectomy converted to open 2. H/o CVA 3. Hypokalemia 4. GI/DVT ppx Plan: 1. Acute cholecystitis s/p lap marquise converted to open - Ceftriaxone and Flagyl - Drain to remain in place and be removed in office as per surgery - pain control with Tylenol PRN 2. History of CVA - Continue ASA 81 3. Hypokalemia - 40Eq K-Dur given - F/u BMP AM GI/DVT prophylaxis: Protonix and Zofran/Heparin Diet: HHD Dispo: JG pending approval Case seen, discussed and full evaluated with attending, Dr. Gregory Howard, PGY1 <Samuel Jenkins B - Last Filed: 09/25/16 16:02> Objective - Vital Signs/Intake and Output Vital Signs (last 24 hours): Temp Pulse Resp BP Pulse Ox 98.1 F 76 18 132/82 94 L 09/25/16 06:00 09/25/16 06:00 09/25/16 06:00 09/25/16 06:00 09/25/16 06:00 Intake and Output: 09/25/16 09/25/16 06:59 18:59 Intake Total 580 780 Output Total 400 15 Balance 180 765 - Labs Labs: 09/25/16 07:00 09/25/16 07:00 PT 11.8 Seconds (9.9-11.8) 09/20/16 12:50 INR 1.09 (0.93-1.08) H 09/20/16 12:50 APTT 27.1 Seconds (23.7-30.8) 09/20/16 12:50 Attending/Attestation - Attestation I have personally seen and examined this patient.: Yes I have fully participated in the care of the patient.: Yes I have reviewed all pertinent clinical information, including history, physical exam and plan: Yes Notes (Text): I have seen and examined the patient at bedside. Agree with the note dictated above with the following additions/ exceptions: Briefly this is 70 year old female with history of CVA x2 with residual right sided weakness, hyperlipidemia who underwent open cholecystectomy and has a biliary drain (POD#4 ) on rocephin and flagyl. Patient was not accepted to TCU yesterday as she will likely require more than 8 days of rehab. Will probably discharge to rehab tomorrow. Dr Samuel Jenkins
[2016-09-25] MEDS: metroNIDAZOLE IV 500 mg/100 ml 500 MG/100 ML BAG IVPB SCH ×2 (05:37→13:00)
[2016-09-25 07:44] LABS: MEAN CELL VOLUME 90.7 fL (80.0-105.0); MEAN CORPUSCULAR HEMOGLOBIN 29.9 pg (25.0-35.0); MEAN PLATELET VOLUME 9.8 fl (7.0-11.0); RBC 3.34 10^6/uL (3.5-6.1); RED CELL DISTRIBUTION WIDTH 13.3 % (11.5-14.5); WHITE BLOOD COUNT 9.7 10^3/ul (4.5-11.0)
--- NOTE | 2016-09-25 07:44 | CP.PCM.PN ---
Subjective - Date & Time of Evaluation Date of Evaluation: 09/25/16 Time of Evaluation: 07:40 - Subjective Subjective: General Surgery Resident: Marilyn Attending: Alma Patient seen and examined at bedside. No adverse events overnight. Patient vomited 1x on 09/24 but has not vomited since. Pain is getting better. Incision C/ D/I without evidence of infection. -BM/+Flatus. Denies F/N/D/C/CP/SOB. Objective - Vital Signs/Intake and Output Vital Signs (last 24 hours): Temp Pulse Resp BP Pulse Ox 98.2 F 96 H 18 121/70 100 09/24/16 16:00 09/24/16 16:00 09/24/16 16:00 09/24/16 16:00 09/24/16 16:00 Intake and Output: 09/25/16 09/25/16 06:59 18:59 Intake Total 580 0 Output Total 400 0 Balance 180 0 - Medications Medications: Current Medications Acetaminophen (Tylenol 325mg Tab) 650 mg PO Q6H PRN PRN Reason: pain (1-3), fever Aspirin (Ecotrin) 81 mg PO DAILY [facility] Last Admin: 09/24/16 09:21 Dose: 81 mg Heparin Sodium (Porcine) (Heparin) 5,000 units SC Q8 [facility] PRN Reason: Protocol Last Admin: 09/25/16 05:41 Dose: 5,000 units Metronidazole (Flagyl) 500 mg in 100 mls @ 100 mls/hr IVPB Q8 [facility] PRN Reason: Protocol Last Admin: 09/25/16 05:37 Dose: 100 mls/hr Ceftriaxone Sodium (Rocephin 1 Gram Ivpb) 1 gm in 100 mls @ 100 mls/hr IVPB DAILY [facility] PRN Reason: Protocol Last Admin: 09/24/16 09:20 Dose: 100 mls/hr Ondansetron HCl (Zofran Inj) 4 mg IVP Q4H PRN PRN Reason: Nausea/Vomiting Last Admin: 09/24/16 18:30 Dose: 4 mg Pantoprazole Sodium (Protonix Inj) 40 mg IVP DAILY [facility] Last Admin: 09/24/16 09:21 Dose: 40 mg - Labs Labs: 09/24/16 06:30 09/24/16 06:30 PT 11.8 Seconds (9.9-11.8) 09/20/16 12:50 INR 1.09 (0.93-1.08) H 09/20/16 12:50 APTT 27.1 Seconds (23.7-30.8) 09/20/16 12:50 - Constitutional Appears: Other (Lethargic) - Head Exam Head Exam: ATRAUMATIC - Eye Exam Eye Exam: EOMI - ENT Exam ENT Exam: Mucous Membranes Moist - Respiratory Exam Respiratory Exam: Clear to Ausculation Bilateral - Cardiovascular Exam Cardiovascular Exam: REGULAR RHYTHM - GI/Abdominal Exam GI & Abdominal Exam: Soft Additional comments: Mild tenderness around incision sites. Non-distended. Incisions C/D/I. MARQUES drain with minimal output, dark brown fluid - Extremities Exam Extremities Exam: Normal Inspection - Neurological Exam Neurological Exam: Alert, Awake, Oriented x3 - Psychiatric Exam Psychiatric exam: Normal Affect, Normal Mood - Skin Skin Exam: Dry, Intact, Normal Color Assessment and Plan - Assessment and Plan (Free Text) Plan: 70 y/o female POD 5 s/p lap converted to open marquise * patient to be transferred to subacute rehab * drains to be removed in office * DVT prophylaxis: SCD * GI prophylaxis: Protonix * continue medical management Hx of CVA Lonnie COTTRELL PGY1
[2016-09-25 07:49] LABS: BLOOD UREA NITROGEN 11 mg/dL (7-21); CALCIUM 7.9 mg/dL (8.4-10.5); GFR AFRICAN-AMERICAN > 60; GFR NON-AFRICAN AMERICAN > 60
[2016-09-25] MEDS ORDERED: Potassium Chloride 20 mEq ER Tab PO STA (08:16)
[2016-09-25 08:47] VITALS: BP 132/82; PULSE 76; TEMP 98.1; O2SAT 94
[2016-09-25] MEDS: cefTRIAXone 1 gm 1 GM/100 ML BAG IVPB SCH (09:19)
--- NOTE | 2016-09-25 17:13 | CP.PCM.DIS ---
<SVETA JUAREZ - Last Filed: 09/25/16 17:13> Provider - Provider Date of Admission: 09/19/16 00:29 Attending physician: Samuel Jenkins MD Primary care physician: Zion Richter MD Time Spent in preparation of Discharge (in minutes): 45 Hospital Course - Lab Results Lab Results: Micro Results 09/19/16 01:12 Blood Blood Culture - Final NO GROWTH AFTER 5 DAYS 09/19/16 01:12 Blood Gram Stain - Final TEST NOT PERFORMED 09/20/16 11:30 Gallbladder Gram Stain - Final 09/20/16 11:30 Gallbladder Anaerobic Culture - Final NO ANAEROBES ISOLATED. 09/20/16 11:30 Gallbladder Wound Culture - Final No growth. Most Recent Lab Values WBC 9.7 10^3/ul (4.5-11.0) 09/25/16 07:00 RBC 3.34 10^6/uL (3.5-6.1) L 09/25/16 07:00 Hgb 10.0 gm/dL (12.0-16.0) L 09/25/16 07:00 Hct 30.3 % (36.0-48.0) L 09/25/16 07:00 MCV 90.7 fL (80.0-105.0) 09/25/16 07:00 MCH 29.9 pg (25.0-35.0) 09/25/16 07:00 MCHC 33.0 g/dl (31.0-37.0) 09/25/16 07:00 RDW 13.3 % (11.5-14.5) 09/25/16 07:00 Plt Count 465 10^3/uL (120.0-450.0) H 09/25/16 07:00 MPV 9.8 fl (7.0-11.0) 09/25/16 07:00 Gran % 75.0 % (50.0-68.0) H 09/24/16 06:30 Lymph % (Auto) 16.3 % (22.0-35.0) L 09/24/16 06:30 [place] % (Auto) 7.1 % (1.0-6.0) H 09/24/16 06:30 Eos % (Auto) 1.5 % (1.5-5.0) 09/24/16 06:30 Baso % (Auto) 0.1 % (0.0-3.0) 09/24/16 06:30 Gran # 6.55 (1.4-6.5) H 09/24/16 06:30 Lymph # 1.4 (1.2-3.4) 09/24/16 06:30 [place] # 0.6 (0.1-0.6) 09/24/16 06:30 Eos # 0.1 (0.0-0.7) 09/24/16 06:30 Baso # 0.01 K/mm3 (0.0-2.0) 09/24/16 06:30 PT 11.8 Seconds (9.9-11.8) 09/20/16 12:50 INR 1.09 (0.93-1.08) H 09/20/16 12:50 APTT 27.1 Seconds (23.7-30.8) 09/20/16 12:50 Sodium 136 mmol/L (132-148) 09/25/16 07:00 Potassium 3.2 mmol/L (3.6-5.0) L 09/25/16 07:00 Chloride 105 mmol/L (95-110) 09/25/16 07:00 Carbon Dioxide 25 mmol/L (21-33) 09/25/16 07:00 Anion Gap 9 (10-20) L 09/25/16 07:00 BUN 11 mg/dL (7-21) 09/25/16 07:00 Creatinine 0.4 mg/dL (0.5-1.4) L 09/25/16 07:00 Est GFR ( Amer) > 60 09/25/16 07:00 Est GFR (Non-Af Amer) > 60 09/25/16 07:00 Random Glucose 108 mg/dL (70-110) 09/25/16 07:00 Calcium 7.9 mg/dL (8.4-10.5) L 09/25/16 07:00 Phosphorus 2.4 mg/dL (2.5-4.5) L 09/23/16 07:00 Magnesium 1.9 mg/dL (1.7-2.2) 09/23/16 07:00 Total Bilirubin 0.4 mg/dL (0.2-1.3) 09/24/16 06:30 AST 30 U/L (15-39) 09/24/16 06:30 ALT 47 U/L (7-56) 09/24/16 06:30 Alkaline Phosphatase 88 U/L (38-133) 09/24/16 06:30 Total Protein 5.5 g/dL (5.8-8.3) L 09/24/16 06:30 Albumin 2.5 g/dL (3.0-4.8) L 09/24/16 06:30 Globulin 3.0 gm/dL 09/24/16 06:30 Albumin/Globulin Ratio 0.8 (1.1-1.8) L 09/24/16 06:30 Lipase 93 U/L (23-300) 09/18/16 22:55 Urine Color Dark yellow (YELLOW) 09/19/16 05:32 Urine Appearance Sl cloudy (CLEAR) 09/19/16 05:32 Urine pH 6.0 (4.7-8.0) 09/19/16 05:32 Ur Specific [place] 1.025 (1.005-1.035) 09/19/16 05:32 Urine Protein 30 mg/dL (<30 mg/dL) H 09/19/16 05:32 Urine Glucose (UA) Negative mg/dL (NEGATIVE) 09/19/16 05:32 Urine Ketones 40 mg/dL (NEGATIVE) H 09/19/16 05:32 Urine Blood Negative (NEGATIVE) 09/19/16 05:32 Urine Nitrate Negative (NEGATIVE) 09/19/16 05:32 Urine Bilirubin Small (NEGATIVE) H 09/19/16 05:32 Urine Urobilinogen >=8.0 E.U./dL (<1 E.U./dL) 09/19/16 05:32 Ur Leukocyte Esterase Negative Kwaku/uL (NEGATIVE) 09/19/16 05:32 Urine RBC 0 - 2 /hpf (0-2) 09/19/16 05:32 Urine WBC 0 - 2 /hpf (0-6) 09/19/16 05:32 Ur Epithelial Cells 3 - 4 /hpf (0-5) 09/19/16 05:32 Urine Bacteria Few (NEG) 09/19/16 05:32 Blood Type O POSITIVE 09/19/16 07:00 Blood Type Confirm O POSITIVE 09/19/16 07:30 Antibody Screen Negative 09/19/16 07:00 BBK History Checked No verified bt 09/19/16 07:00 - Hospital Course Hospital Course: 70 yo F PMHx CVA x2 and HLD presented to the ED on 09/18/16 c/o upper abdominal pain for the past 5 days. Family reported associated decreased appetite, 1 episode of vomiting and constipation. Denied fevers, chills, chest pain, shortness of breath, or any urinary changes. In ED, abdomial US showed diffuse gallbladder wall thickening, partially distended gallbladder with shadowing stones and minimal sludge. EKG showed normal sinus rhythm.Total bili, AST/ALT, ALKP were elevated. Afebrile with leukocytosis of 13.1 on admission. Pt was started on cipro/flagyl and given zofran for n/v. Surgery was consulted and recommended MRCP to r/o choledocholithiasis but stated no need for emergent surgical intervention, and pt would need lap cholecystectomy. MRCP on 09/19/16 showed no evidence of choledocholithiasis, but showed evidence of cholecystitis. HIDA on 09/19/16 showed cystic duct occluded. GI was consulted on 09/19/16 for acute cholecystitis (for which they recommended surgical eval) and elevated LFTs (recommended zosyn IV and checking vital hepatitis serologies and rechecking LFTs in 2wks) Pt underwent a laparoscopic cholecystectomy that was converted to open partial cholecystectomy w/ extensive lysis of adhesions on 09/20/16. WBC trended down from 14.3 on 09/20/16 to 9.7 on 09/23/16. Pt tolerated the surgery well and has a good appetite. Patient is not ambulating yet (uses wheelchair at home due to h/o CVA). Today, the patient had no complaints and was in no apparent distress. Denies bowel movements, but + flatus. Pt admits to n/v that is improving from prior days, and that she had 1 episode of vomiting overnight. Incision sites are clearn, dry and intact. Patient to be transferred to [facility] for further management and rehabilitation. - Date & Time of H&P Date of H&P: 09/19/16 Time of H&P: 01:00 Discharge Exam - Head Exam Head Exam: ATRAUMATIC, NORMOCEPHALIC - Eye Exam Eye Exam: EOMI, Normal appearance - ENT Exam ENT Exam: Mucous Membranes Moist - Respiratory Exam Respiratory Exam: NORMAL BREATHING PATTERN. absent: Rales, Rhonchi, Wheezes, Respiratory Distress - Cardiovascular Exam Cardiovascular Exam: RRR. absent: Gallop, Rubs, Systolic Murmur - GI/Abdominal Exam GI & Abdominal Exam: Normal Bowel Sounds, Tenderness (tender to palpation near incisions). absent: Distended - Neurological Exam Neurological exam: Alert - Psychiatric Exam Psychiatric exam: Normal Affect, Normal Mood - Skin Skin Exam: Normal Color, Warm Discharge Plan - Follow Up Plan Condition: STABLE Disposition: TRANSF TO SNF Instructions: Cholecystitis (DC), Cholecystitis (GEN), Biliary Colic (GEN) Additional Instructions: Patient discharged to [facility] in [place], [place] Referrals: Zion Richter MD [Primary Care Provider] - <Samuel Jenkins - Last Filed: 09/26/16 13:34> Provider - Provider Date of Admission: 09/19/16 00:29 Attending physician: Samuel Jenkins MD Primary care physician: Zion Richter MD Hospital Course - Lab Results Lab Results: Micro Results 09/19/16 01:12 Blood Blood Culture - Final NO GROWTH AFTER 5 DAYS 09/19/16 01:12 Blood Gram Stain - Final TEST NOT PERFORMED 09/20/16 11:30 Gallbladder Gram Stain - Final 09/20/16 11:30 Gallbladder Anaerobic Culture - Final NO ANAEROBES ISOLATED. 09/20/16 11:30 Gallbladder Wound Culture - Final No growth. Most Recent Lab Values WBC 9.7 10^3/ul (4.5-11.0) 09/25/16 07:00 RBC 3.34 10^6/uL (3.5-6.1) L 09/25/16 07:00 Hgb 10.0 gm/dL (12.0-16.0) L 09/25/16 07:00 Hct 30.3 % (36.0-48.0) L 09/25/16 07:00 MCV 90.7 fL (80.0-105.0) 09/25/16 07:00 MCH 29.9 pg (25.0-35.0) 09/25/16 07:00 MCHC 33.0 g/dl (31.0-37.0) 09/25/16 07:00 RDW 13.3 % (11.5-14.5) 09/25/16 07:00 Plt Count 465 10^3/uL (120.0-450.0) H 09/25/16 07:00 MPV 9.8 fl (7.0-11.0) 09/25/16 07:00 Gran % 75.0 % (50.0-68.0) H 09/24/16 06:30 Lymph % (Auto) 16.3 % (22.0-35.0) L 09/24/16 06:30 [place] % (Auto) 7.1 % (1.0-6.0) H 09/24/16 06:30 Eos % (Auto) 1.5 % (1.5-5.0) 09/24/16 06:30 Baso % (Auto) 0.1 % (0.0-3.0) 09/24/16 06:30 Gran # 6.55 (1.4-6.5) H 09/24/16 06:30 Lymph # 1.4 (1.2-3.4) 09/24/16 06:30 [place] # 0.6 (0.1-0.6) 09/24/16 06:30 Eos # 0.1 (0.0-0.7) 09/24/16 06:30 Baso # 0.01 K/mm3 (0.0-2.0) 09/24/16 06:30 PT 11.8 Seconds (9.9-11.8) 09/20/16 12:50 INR 1.09 (0.93-1.08) H 09/20/16 12:50 APTT 27.1 Seconds (23.7-30.8) 09/20/16 12:50 Sodium 136 mmol/L (132-148) 09/25/16 07:00 Potassium 3.2 mmol/L (3.6-5.0) L 09/25/16 07:00 Chloride 105 mmol/L (95-110) 09/25/16 07:00 Carbon Dioxide 25 mmol/L (21-33) 09/25/16 07:00 Anion Gap 9 (10-20) L 09/25/16 07:00 BUN 11 mg/dL (7-21) 09/25/16 07:00 Creatinine 0.4 mg/dL (0.5-1.4) L 09/25/16 07:00 Est GFR ( Amer) > 60 09/25/16 07:00 Est GFR (Non-Af Amer) > 60 09/25/16 07:00 Random Glucose 108 mg/dL (70-110) 09/25/16 07:00 Calcium 7.9 mg/dL (8.4-10.5) L 09/25/16 07:00 Phosphorus 2.4 mg/dL (2.5-4.5) L 09/23/16 07:00 Magnesium 1.9 mg/dL (1.7-2.2) 09/23/16 07:00 Total Bilirubin 0.4 mg/dL (0.2-1.3) 09/24/16 06:30 AST 30 U/L (15-39) 09/24/16 06:30 ALT 47 U/L (7-56) 09/24/16 06:30 Alkaline Phosphatase 88 U/L (38-133) 09/24/16 06:30 Total Protein 5.5 g/dL (5.8-8.3) L 09/24/16 06:30 Albumin 2.5 g/dL (3.0-4.8) L 09/24/16 06:30 Globulin 3.0 gm/dL 09/24/16 06:30 Albumin/Globulin Ratio 0.8 (1.1-1.8) L 09/24/16 06:30 Lipase 93 U/L (23-300) 09/18/16 22:55 Urine Color Dark yellow (YELLOW) 09/19/16 05:32 Urine Appearance Sl cloudy (CLEAR) 09/19/16 05:32 Urine pH 6.0 (4.7-8.0) 09/19/16 05:32 Ur Specific [place] 1.025 (1.005-1.035) 09/19/16 05:32 Urine Protein 30 mg/dL (<30 mg/dL) H 09/19/16 05:32 Urine Glucose (UA) Negative mg/dL (NEGATIVE) 09/19/16 05:32 Urine Ketones 40 mg/dL (NEGATIVE) H 09/19/16 05:32 Urine Blood Negative (NEGATIVE) 09/19/16 05:32 Urine Nitrate Negative (NEGATIVE) 09/19/16 05:32 Urine Bilirubin Small (NEGATIVE) H 09/19/16 05:32 Urine Urobilinogen >=8.0 E.U./dL (<1 E.U./dL) 09/19/16 05:32 Ur Leukocyte Esterase Negative Kwaku/uL (NEGATIVE) 09/19/16 05:32 Urine RBC 0 - 2 /hpf (0-2) 09/19/16 05:32 Urine WBC 0 - 2 /hpf (0-6) 09/19/16 05:32 Ur Epithelial Cells 3 - 4 /hpf (0-5) 09/19/16 05:32 Urine Bacteria Few (NEG) 09/19/16 05:32 Blood Type O POSITIVE 09/19/16 07:00 Blood Type Confirm O POSITIVE 09/19/16 07:30 Antibody Screen Negative 09/19/16 07:00 BBK History Checked No verified bt 09/19/16 07:00 Attending/Attestation - Attestation I have personally seen and examined this patient.: Yes I have fully participated in the care of the patient.: Yes I have reviewed all pertinent clinical information, including history, physical exam and plan: Yes Notes (Text): I have seen and examined the patient at bedside. Agree with the note dictated above with the following additions/ exceptions: Briefly this is 70 year old female with history of CVA x2 with residual right sided weakness, hyperlipidemia who underwent open cholecystectomy and has a biliary drain (POD#5 ) on rocephin and flagyl. Patient will go to [facility] today. Follow up with Dr Cabello and Dr Mc as an outpatient. Dr Samuel Jenkins
--- NOTE | 2016-10-24 04:27 | OP ---
PROCEDURE DATE: 09/20/2016 PREOPERATIVE DIAGNOSES: 1. Acute cholecystitis and cholelithiasis. 2. Chronic cholecystitis. 3. Cerebrovascular accident with hemiparesis. POSTOPERATIVE DIAGNOSES: 1. [id number] phlegmonous gangrenous cholecystitis. 2. Extensive post infectious adhesion. 3. Pericholecystic and perihepatic bilious collection. 4. Cerebrovascular accident with hemiparesis. PROCEDURE DONE: 1. Laparoscopic converted to open partial cholecystectomy. 2. Laparoscopic extensive lysis of adhesion. 3. Laparoscopic drainage of pericholecystic and perihepatic bilious collection. SURGEON: Dr. Don Marquez. SPUN PASTE MACHINE OPERATOR: Kellee Monahan, PGY-1 resident. TYPE OF ANESTHESIA: General endotracheal tube anesthesia. ESTIMATED BLOOD LOSS: Around 500 mL. DRAINS: One large Dalton drain was placed. COMPLICATIONS: None. INTRAOPERATIVE FINDINGS: The patient had [id number] phlegmonous necrotizing gangrenous cholecystitis with possible gallbladder perforation with pericholecystic and perihepatic bilious collection and extensive postinfectious adhesion in the right upper quadrant. DESCRIPTION OF PROCEDURE: On intraoperative steps, this is a 71-year-old female who was diagnosed with acute cholecystitis with cholelithiasis. The patient had similar symptoms previously. The patient also had CVA with hemiparesis. The patient was consented for laparoscopic cholecystectomy, possible open, brought to the OR, placed supine on the operating table. After induction of anesthesia, the abdomen was prepped and draped in the usual sterile fashion and supraumbilical transverse 1.5 cm incision was made after incising skin and subcutaneous tissue. The fascia was incised. Mik port was placed. Pneumo was created. A 12 mm port was placed in subcostal region. Two 5 mm port was placed in upper abdomen after the grasper and dissector was introduced. The patient found to have a bilious fluid collection surrounding the gallbladder as well as perihepatic area. The suction irrigation of the fluid collection was done. An extensive lysis of adhesion was done. There was omentum in small bowel colon was covering the duodenum and first extensive lysis of adhesion was done and gallbladder was identified. The gallbladder appear to be ischemic and necrotizing. First gallbladder was aspirated. Approximately, 100 mL of fluid was aspirated. Now, the gallbladder was retracted cranially. The wall of the gallbladder appear to be extremely weak and tearing during the retraction. Now, the dissection was continued to identify the infundibulum and Calot's triangle. The Calot's of triangle appear to be extremely edematous and thickened. Cystic duct and common bile duct was identified. The gallbladder appear to be extremely attached to the common bile duct. The procedure was converted to open. Now, a subcostal incision was made after incising the skin and subcutaneous tissue, muscles and fascia. The colon and liver was retracted. A top down approach was done for the gallbladder and a partial resection of the gallbladder was done and approximately 15% of the gallbladder left. Cystic duct that was isolated before was ligated. The Dalton drain was placed. Due to the extensive nature of the procedure. After suction irrigation, the wound was closed in two layers. The muscles with #1 looped PDS in a continuous sutures. Skin with eliot. A dry sterile dressing was applied. The umbilical port site and other port site was also closed in two layers. The patient tolerated the procedure well. Count of the instrument was correct. There was no apparent complication. The patient was extubated in OR and sent to the postanesthesia care unit in stable condition. It took approximately 60 to 90 minutes extra for the routine procedure. Don Marquez MD [id number]
== END 2016-09-25 15:26 | DRG 415 ==
LOC: ED 22:24 → ERH 09-19 00:29 → 3RNO 09-19 01:36
PROVIDERS: ADMIT Internal Medicine; ATTEND Hospitalist
PROC: 0FT40ZZ Resection of Gallbladder, Open Approach (ICD-10-PCS; principal; 2016-09-19)
PROC: 0DNT4ZZ (ICD-10-PCS; 2016-09-19)
PROC: 0F944ZZ Drainage of Gallbladder, Percutaneous Endoscopic Approach (ICD-10-PCS; 2016-09-19)
DX: K80.66 Calculus of gallbladder and bile duct with acute and chronic cholecystitis without obstruction (principal); R65.10 Systemic inflammatory response syndrome (SIRS) of non-infectious origin without acute organ dysfunction; I27.2 Other secondary pulmonary hypertension; I69.351 Hemiplegia and hemiparesis following cerebral infarction affecting right dominant side; R63.0 Anorexia; E78.5 Hyperlipidemia, unspecified; K59.00 Constipation, unspecified; E87.6 Hypokalemia; Z53.31 Laparoscopic surgical procedure converted to open procedure